=== PATIENT | female | born 1945 | race Caucasian/White ===

== ENCOUNTER 2016-03-12 09:28 | Outpatient (CLI) ==
[2016-01-12 13:30] VITALS: BMI 36.2
[2016-03-12 10:10] LABS: ALBUMIN 3.2 g/dL (3.4-5.0); ALBUMIN/GLOBULIN RATIO 0.97; ANION GAP 17.3; BILIRUBIN,TOTAL 0.27 mg/dL (0.00-1.20); BUN/CREATININE RATIO 8.33; CALCIUM 9.4 mg/dL (8.2-10.2); CREATININE 1.56 mg/dL (0.60-1.30); POTASSIUM 4.3 mmol/L (3.5-5.10); TOTAL PROTEIN 6.5 g/dL (5.8-8.1)
== END 2016-03-12 09:29 | disposition home or self-care (01) ==
LOC: LAB 09:28
PROVIDERS: ATTEND Emergency Medicine
DX: D64.9 Anemia, unspecified (principal); E11.9 Type 2 diabetes mellitus without complications; J44.9 Chronic obstructive pulmonary disease, unspecified; I10 Essential (primary) hypertension
CPT/HCPCS: 36415; 80053; 83036

== ENCOUNTER 2016-03-14 12:48 | Outpatient (CLI) ==
[2016-01-12 13:30] VITALS: BMI 36.2
[2016-03-14 13:50] LABS: BILIRUBIN,URINE Negative (NEGATIVE); KETONES,URINE Negative (NEGATIVE); LEUKOCYTE ESTERASE ,URINE 1+ (NEGATIVE); NITRITE,URINE Positive (NEGATIVE); PH,URINE 8.5 (5-9); PROTEIN,URINE Negative (NEGATIVE); URINE, BLOOD Negative (NEGATIVE)
[2016-03-14 13:52] LABS: ADD URINE MICROSCOPIC YES
[2016-03-14 13:56] LABS: BACTERIA,URINE 2+ (NOT PRESENT)
== END 2016-03-14 12:49 | disposition home or self-care (01) ==
LOC: LAB 12:48
PROVIDERS: ATTEND Emergency Medicine
DX: R35.0 Frequency of micturition (principal)
CPT/HCPCS: 81001; 87086; 87186

== ENCOUNTER 2016-03-18 00:13 | Outpatient (CLI) | payer OTHER ==
[2016-01-12 13:30] VITALS: BMI 36.2
== END 2016-03-18 00:14 | disposition home or self-care (01) ==
LOC: AMBL 00:13
PROVIDERS: ATTEND Emergency Medicine
DX: S39.92XA Unspecified injury of lower back, initial encounter (principal); S19.9XXA Unspecified injury of neck, initial encounter; W06.XXXA Fall from bed, initial encounter

== ENCOUNTER 2016-03-24 12:36 | Outpatient (CLI) ==
[2016-03-24 17:31] VITALS: BMI 38.7
== END 2016-03-24 12:37 | disposition home or self-care (01) ==
LOC: AMBL 12:36
PROVIDERS: ATTEND Internal Medicine Geriatric Medicine
DX: G20 Parkinson's disease (principal)

== ENCOUNTER 2016-03-24 13:08 | Inpatient (IN) | payer OTHER ==
--- NOTE | 2016-03-24 13:26 | ED.PDOC ---
General ED Provider: Dr. AZUL RODRIGUES Chief Complaint: Non-specific Complaint Time Seen by Physician: 13:15 Mode of Arrival: Ambulance Information Source: Patient, EMT Exam Limitations: No limitations [facility] T[facility] Documentation Reviewed and Agree: Yes Past Medical History - Past Medical History Previously Healthy: No Endocrine: Reports: DM 2 Cardiovascular: Reports: Hypertension Respiratory: Reports: COPD Hematological: Reports: Anemia Gastrointestinal: Reports: None Genitourinary: Reports: CKD Neuro/Psych: Reports: Depression, Bipolar Disorder Musculoskeletal: Reports: None Cancer: Reports: Other Last Menstrual Period: none Other Pertinent Past Medical History: Eye SurgeryHip Replacement RightHysterectomy---1995??? - Surgical History General Surgical History: Reports: Hysterectomy (Hysterectomy---1995???), Appendectomy, Cholecystectomy, Orthopedic (Hip Replacement Right), Other (Eye Surgery) - Family History Family History: Reports: Unknown - Social History Smoking Status: Former smoker Hx Substance Use: No Alcohol Screening: None Course - Course Vital Signs: Temp Pulse Resp BP Pulse Ox 03/24/16 13:09 97.4 F L 72 20 117/73 98 Departure - Departure Allergies/Adverse Reactions: Allergies pentazocine lactate [From Talwin] Allergy (Severe, Verified 03/24/16 13:18) RASH,MADE ME SICK, PROBLEMS BREATHING pT NOTIFIED TO GET MEDICAL ALERT [place] nitrofurantoin macrocrystal [From Macrodantin] Allergy (Intermediate, Verified 03/24/16 13:18) rash, swelling of lips and tongue ceftriaxone Adverse Reaction (Severe, Verified 03/24/16 13:18) Swelling bupropion HCl [From Wellbutrin] Adverse Reaction (Verified 03/24/16 13:18) ciprofloxacin [From Cipro] Adverse Reaction (Verified 03/24/16 13:18) citalopram hydrobromide [From Celexa] Adverse Reaction (Verified 03/24/16 13:18) gabapentin [From Neurontin] Adverse Reaction (Verified 03/24/16 13:18) ibuprofen Adverse Reaction (Verified 03/24/16 13:18) propoxyphene HCl [From Darvon] Adverse Reaction (Verified 03/24/16 13:18) propoxyphene napsylate [From Darvocet-N 100] Adverse Reaction (Verified 13:18) acetaminophen Adverse Reaction (Uncoded 12/16/12 16:20) adhesive tape Adverse Reaction (Uncoded 11/10/15 09:16) Home Medications: Ambulatory Orders Fluoxetine HCl 40 mg PO DAILY 02/10/15 Metformin HCl [Glucophage] 500 mg PO BIDWM 1 Days 02/11/15 Furosemide [Lasix Tab] 20 mg PO ONCE PRN #14 tablet 04/13/15 Potassium Chloride [K-Dur] 20 meq PO DAILY #30 tab 04/13/15 Clotrimazole/Betamethasone Dip [Lotrisone 45 gm] 1 applic TP BID #1 applic 06/12 Diazepam [Valium] 10 mg PO TID #90 08/11/15 Fluoxetine HCl [Prozac] 40 mg PO 2 in am #30 08/11/15 Quetiapine Fumarate [Seroquel] 200 mg PO at hs #30 08/11/15 Glycerin/Dimethicone [Neutrogena Sensi Skin Moisture] 1 applic TP DAILY #120 lotion 11/10/15 Hydrocodone/Acetaminophen [[place] 7.5-325 Tablet] 1 each PO BID 01/18/16
--- NOTE | 2016-03-24 13:29 | ED.PDOC ---
General ED Provider: Dr. AZUL RODRIGUES Chief Complaint: Non-specific Complaint Stated Complaint: Patient is a 70 year old female who comes to the ER with tremors that have gotten worse over the last two weeks. She states she was diaganosed with parkisons disease one year ago. She also complains of bruning on urination despite being on bactrium for the past few days. She has noted rash to legs since starting bactrium Time Seen by Physician: 13:26 Mode of Arrival: Ambulance Information Source: Patient, EMT Exam Limitations: No limitations [facility] Nursing and Triage Documentation Reviewed and Agree: Yes Miscellaneous Complaint Exam - Complex/Multi-System Complaint/Exam Onset/Duration: 2 weeks Symptoms Are: Still present Initial Severity: Moderate Current Severity: Severe Character: Bilateral diffuse tremor at rest and with intension. Aggravating: movement Alleviating: nothing Associated Signs and Symptoms: Reports: Decreased oral intake. Denies: Cough, Nausea, Vomiting Focal Weakness: Present: None Focal Sensory Loss: Present: None Gait: Ataxic Gag Reflex Present: Yes Babinski Sign: Negative Right, Negative Left Skin Findings: Present: Rash (on the shins bilaterally ) Review of Systems - Review Of Systems Constitutional: Reports: No symptoms Eyes: Reports: No symptoms Ears, Nose, Mouth, Throat: Reports: No symptoms Respiratory: Reports: No symptoms Cardiac: Reports: No symptoms GI: Reports: No symptoms : Reports: Dysuria Musculoskeletal: Reports: No symptoms Skin: Reports: No symptoms Neurological: Reports: Anxiety, Other (tremors ) Endocrine: Reports: No symptoms Hematologic/Lymphatic: Reports: No symptoms All Other Systems: Reviewed and Negative Past Medical History - Past Medical History Previously Healthy: No Endocrine: Reports: DM 2 Cardiovascular: Reports: Hypertension Respiratory: Reports: COPD Hematological: Reports: Anemia Gastrointestinal: Reports: None Genitourinary: Reports: CKD Neuro/Psych: Reports: Depression, Bipolar Disorder Musculoskeletal: Reports: None Cancer: Reports: Other Last Menstrual Period: none Other Pertinent Past Medical History: Eye SurgeryHip Replacement RightHysterectomy---1995??? - Surgical History General Surgical History: Reports: Hysterectomy (Hysterectomy---1995???), Appendectomy, Cholecystectomy, Orthopedic (Hip Replacement Right), Other (Eye Surgery) - Family History Family History: Reports: Unknown - Social History Smoking Status: Former smoker Hx Substance Use: No Alcohol Screening: None Physical Exam - Physical Exam Appearance: Ill-appearing, Obese Ill-appearing: Moderate Pain Distress: Moderate Eyes: YAO, EOMI, Conjunctiva clear ENT: Ears normal, Nose normal, Oropharynx normal Neck: Supple Respiratory: Airway patent, Breath sounds clear, Breath sounds equal, Respirations nonlabored Cardiovascular: RRR, Pulses normal, No rub, No murmur GI/: Soft, Nontender, No masses, Bowel sounds normal, No Organomegaly Musculoskeletal: Normal strength, ROM intact, No edema, No calf tenderness Skin: Warm, Dry Neurological: Sensation intact, Motor intact, Reflexes intact, Cranial nerves intact, Alert, Oriented Psychiatric: Anxious, Depressed Physician Notification - Case Discussed Physician Notified: Dr Armstrong Time of Notification: 14:50 (ok to admit not to give IV Pain medicaiton due to history of withdrawal.) Critical Care Note - Critical Care Note Total Time (mins): 15 Course - Course Hematology/Chemistry: 03/24/16 13:55 03/24/16 13:55 Orders, Labs, Meds: Lab Review 03/24/16 13:55 WBC 6.08 RBC 4.09 L Hgb 11.3 L Hct 35.7 L MCV 87.3 MCH 27.6 MCHC 31.7 L RDW Coeff of Sandrine 14.8 Plt Count 261 Immature Gran % (Auto) 0.2 Neut % (Auto) 44.3 Lymph % (Auto) 43.1 [place] % (Auto) 9.0 Eos % (Auto) 2.6 Baso % (Auto) 0.8 Immature Gran # (Auto) 0.0 Neut # 2.7 Lymph # 2.6 [place] # 0.6 Eos # 0.2 Baso # 0.1 Sodium 142 Potassium 4.4 Chloride 106 Carbon Dioxide 26 Anion Gap 14.4 BUN 26 H Creatinine 1.90 H Estimated GFR (MDRD) 26.00 BUN/Creatinine Ratio 13.68 Glucose 92 Calcium 9.4 Total Bilirubin 0.35 AST 22 ALT 18 Alkaline Phosphatase 64 Total Protein 6.9 Albumin 3.8 Globulin 3.1 Albumin/Globulin Ratio 1.23 Orders Category Date Time Status CBC W/ AUTO DIFF Stat LAB 03/24/16 13:55 Completed COMPREHENSIVE METABOLIC PANEL Stat LAB 03/24/16 13:55 Completed UA [URINALYSIS C & S IF INDICATED] Stat LAB 03/24/16 16:10 Completed Medications Generic Name Dose Route Start Last Admin Trade Name Freq PRN Reason Stop Dose Admin Acetaminophen/Hydrocodone Bitart tab 03/24/16 21:00 [place] 7.5-325 PO BID [facility] Albuterol Sulfate puff 03/24/16 17:00 Proair Hfa IH QID [facility] Amantadine HCl 100 mg 03/24/16 21:00 Symmetrel PO BID REJI Budesonide/Formoterol Fumarate puff 03/24/16 21:00 Symbicort 160-4.5 Mcg Inhaler IH BID [facility] Enoxaparin Sodium 30 mg 03/25/16 09:00 Lovenox SUBCUT DAILY [facility] Gabapentin 300 mg 03/24/16 21:00 Neurontin PO BID [facility] Sodium Chloride 1,000 mls @ 125 mls/hr 03/24/16 15:00 Sodium Chloride IV .Q8H REJI Aztreonam 0.5 gm/ Sodium 50 mls @ 75 mls/hr 03/24/16 17:00 Chloride IV Q12HR [facility] Nitroglycerin 0.4 mg 03/24/16 17:00 Nitrostat SL DIRECTED [facility] Non-Formulary Medication 40 mg 03/25/16 09:00 Fluoxetine Hcl [Fluoxetine Hcl] PO DAILY [facility] Non-Formulary Medication 1 applic 03/25/16 09:00 Glycerin/Dimethicone [Neutrogena Sensi Skin Moisture] TP DAILY [facility] Non-Formulary Medication 12.5 mg 03/25/16 09:00 Hydrochlorothiazide [Hydrochlorothiazide] PO DAILY [facility] Non-Formulary Medication 200 mg 03/24/16 16:45 Quetiapine Fumarate [Seroquel] PO at hs REJI Non-Formulary Medication 20 mg 03/25/16 09:00 Simvastatin [Simvastatin] PO DAILY [facility] Non-Formulary Medication 10 mg 03/24/16 21:00 Diazepam [Valium] PO TID REJI Non-Formulary Medication 20 mg 03/24/16 21:00 Esomeprazole Magnesium [Nexium] PO BID [facility] Ondansetron HCl 4 mg 03/24/16 14:54 Zofran 4 Mg/2 Ml IVP Q6H PRN Nausea / Vomiting Sitagliptin Phosphate 50 mg 03/25/16 09:00 Januvia PO DAILY [facility] Discontinued Medications Generic Name Dose Route Start Last Admin Trade Name Freq PRN Reason Stop Dose Admin Enoxaparin Sodium 40 mg 03/25/16 09:00 Lovenox SUBCUT DAILY [facility] Metformin HCl 1,000 mg 03/24/16 17:30 Glucophage PO BIDWM [facility] Vital Signs: Temp Pulse Resp BP Pulse Ox 03/24/16 13:09 97.4 F L 72 20 117/73 98 Departure - Departure Time of Disposition: 16:47 Disposition: ADMITTED INPATIENT Discharge Problem: Acute renal failure Qualifiers: Acute renal failure type: with acute renal cortical necrosis Qualifier Code: ( N17.1) Acute kidney failure with acute cortical necrosis UTI (urinary tract infection) Qualifiers: Urinary tract infection type: acute cystitis Hematuria presence: without hematuria Qualifier Code: (N30.00) Acute cystitis without hematuria Condition: Fair Pt referred to PMD for follow-up: Yes Allergies/Adverse Reactions: Allergies pentazocine lactate [From Talwin] Allergy (Severe, Verified 03/24/16 13:18) RASH,MADE ME SICK, PROBLEMS BREATHING pT NOTIFIED TO GET MEDICAL ALERT [place] nitrofurantoin macrocrystal [From Macrodantin] Allergy (Intermediate, Verified 03/24/16 13:18) rash, swelling of lips and tongue ceftriaxone Adverse Reaction (Severe, Verified 03/24/16 13:18) Swelling bupropion HCl [From Wellbutrin] Adverse Reaction (Verified 03/24/16 13:18) ciprofloxacin [From Cipro] Adverse Reaction (Verified 03/24/16 13:18) citalopram hydrobromide [From Celexa] Adverse Reaction (Verified 03/24/16 13:18) gabapentin [From Neurontin] Adverse Reaction (Verified 03/24/16 13:18) ibuprofen Adverse Reaction (Verified 03/24/16 13:18) propoxyphene HCl [From Darvon] Adverse Reaction (Verified 03/24/16 13:18) propoxyphene napsylate [From Darvocet-N 100] Adverse Reaction (Verified 13:18) acetaminophen Adverse Reaction (Uncoded 12/16/12 16:20) adhesive tape Adverse Reaction (Uncoded 11/10/15 09:16) Home Medications: Ambulatory Orders Fluoxetine HCl 40 mg PO DAILY 02/10/15 Furosemide [Lasix Tab] 20 mg PO ONCE PRN #14 tablet 04/13/15 Diazepam [Valium] 10 mg PO TID #90 08/11/15 Quetiapine Fumarate [Seroquel] 200 mg PO at hs #30 08/11/15 Glycerin/Dimethicone [Neutrogena Sensi Skin Moisture] 1 applic TP DAILY #120 lotion 11/10/15 Hydrocodone/Acetaminophen [[place] 7.5-325 Tablet] 1 each PO BID 01/18/16 Amantadine HCl [Amantadine] 100 mg PO BID 03/24/16 Metformin HCl [Glucophage] 1,000 mg PO BIDWM 03/24/16 Disposition Discussed With: Patient
[2016-03-24 13:57] LABS: BASOPHILS # (AUTO) 0.1 K/uL (0-0.2); BASOPHILS % (AUTO) 0.8 % (0.0-3.0); EOSINOPHILS # (AUTO) 0.2 K/ul (0.0-0.7); EOSINOPHILS % (AUTO) 2.6 % (0.0-7.0); HEMATOCRIT 35.7 % (37.0-47.0); HEMOGLOBIN 11.3 g/dl (12.0-16.0); IMMATURE GRANULOCYTE % (AUTO) 0.2 % (0.0-5.0); LYMPHOCYTES # (AUTO) 2.6 K/uL (0.60-3.4); LYMPHOCYTES % (AUTO) 43.1 (10.0-50.0); MEAN CORPUSCULAR HEMOGLOBIN 27.6 pg (27.0-31.0); MEAN CORPUSCULAR HGB CONC 31.7 (31.8-35.4); MEAN CORPUSCULAR VOLUME 87.3 fl (81.0-99.0); MONOCYTES # (AUTO) 0.6 K/uL (0.4-2.0); NEUTROPHILS # (AUTO) 2.7 K/ul (2.0-6.9); NEUTROPHILS % (AUTO) 44.3; PLATELET COUNT 261 10^3/uL (140-440); RED BLOOD COUNT 4.09 10^6/ul (4.20-5.40); WHITE BLOOD COUNT 6.08 K/ul (4.6-10.2)
[2016-03-24 14:18] LABS: ALBUMIN 3.8 g/dL (3.4-5.0); ALBUMIN/GLOBULIN RATIO 1.23; ANION GAP 14.4; BILIRUBIN,TOTAL 0.35 mg/dL (0.00-1.20); BUN/CREATININE RATIO 13.68; CALCIUM 9.4 mg/dL (8.2-10.2); CREATININE 1.9 mg/dL (0.60-1.30); POTASSIUM 4.4 mmol/L (3.5-5.10); TOTAL PROTEIN 6.9 g/dL (5.8-8.1)
[2016-03-24] MEDS ORDERED: ZOFRAN 4 MG/2 ML IVP PRN (14:54)
[2016-03-24] MEDS ORDERED: SODIUM CHLORIDE 1,000 ML IV SCH (15:00)
[2016-03-24 16:17] LABS: BILIRUBIN,URINE Negative (NEGATIVE); KETONES,URINE Negative (NEGATIVE); LEUKOCYTE ESTERASE ,URINE 1+ (NEGATIVE); NITRITE,URINE Positive (NEGATIVE); PH,URINE 8.5 (5-9); PROTEIN,URINE Trace (NEGATIVE); URINE, BLOOD Negative (NEGATIVE)
[2016-03-24 16:19] LABS: ADD URINE MICROSCOPIC YES
[2016-03-24 16:21] LABS: BACTERIA,URINE 3+ (NOT PRESENT)
[2016-03-24] MEDS ORDERED: LIDOCAINE 1 % AMP 5 ML (SUTURES) ONE (16:22)
--- NOTE | 2016-03-24 16:33 | ED.PDOC ---
Procedures - IV/Art Line Insertion Location: rt wrist Type of Line: Peripheral IV Invasive Line/IV Catheter Gauge: 24 Number of Attempts: 1 Blood Return Positive: Yes Invasive Line/IV Flushes Without Difficulty: Yes Conscious Sedation - Pre-op Assessment Weight: 180 lb Surgical History: Appendectomy. Gallbladder. Eye Surgery. Hip Replacement Right. Hysterectomy---1995??? - Medical History Past Medical History: Cancer, COPD, Depression Other History: parkinsons - Physical Exam Heart Rate/Rhythm: Regular Rhythm, Regular Rate
[2016-03-24] MEDS ORDERED: QUETIAPINE FUMARATE 200 MG PO SCH ×2 (16:45→22:03)
[2016-03-24] MEDS ORDERED: PROAIR HFA IH SCH (17:00)
[2016-03-24] MEDS ORDERED: NITROSTAT SL PRN (17:00)
[2016-03-24] MEDS ORDERED: GLUCOPHAGE PO SCH (17:30)
[2016-03-24 17:31] VITALS: BMI 38.7
[2016-03-24] MEDS ORDERED: AZACTAM ONE ×2 (18:14→18:16)
[2016-03-24] MEDS ORDERED: SODIUM CHLORIDE 50 ML IV ONE (18:29)
[2016-03-24] MEDS: AZACTAM 0.5 GM in SODIUM CHLORIDE 50 ML IV SCH ×2 (18:30→20:28)
[2016-03-24] MEDS: SODIUM CHLORIDE 1,000 ML IV SCH (18:30)
[2016-03-24] MEDS ORDERED: LASIX TAB PO PRN (19:10)
[2016-03-24] MEDS ORDERED: PROAIR HFA IH PRN (19:10)
[2016-03-24] MEDS ORDERED: VALIUM ONE (20:25)
[2016-03-24] MEDS: NEURONTIN PO SCH (20:28)
[2016-03-24] MEDS: NORCO 7.5-325 PO SCH (20:28)
[2016-03-24] MEDS ORDERED: SYMMETREL PO SCH (21:00)
[2016-03-24] MEDS ORDERED: NON-FORMULARY MEDICATION (Diazepam [Valium] 10 MG) PO SCH ×22 (21:00)
[2016-03-24] MEDS ORDERED: NORCO 7.5-325 PO SCH (21:00)
[2016-03-24] MEDS ORDERED: NON-FORMULARY MEDICATION (Esomeprazole Magnesium [Nexium] 20 MG) PO SCH ×22 (21:00)
[2016-03-24] MEDS ORDERED: SEROQUEL ONE (22:14)
[2016-03-24] MEDS ORDERED: SEROQUEL PO STA (22:16)
[2016-03-25 04:54] LABS: BASOPHILS # (AUTO) 0.1 K/uL (0-0.2); BASOPHILS % (AUTO) 0.9 % (0.0-3.0); EOSINOPHILS # (AUTO) 0.2 K/ul (0.0-0.7); EOSINOPHILS % (AUTO) 3.5 % (0.0-7.0); HEMATOCRIT 34.7 % (37.0-47.0); HEMOGLOBIN 10.7 g/dl (12.0-16.0); IMMATURE GRANULOCYTE % (AUTO) 0.4 % (0.0-5.0); LYMPHOCYTES # (AUTO) 2.7 K/uL (0.60-3.4); LYMPHOCYTES % (AUTO) 48.7 (10.0-50.0); MEAN CORPUSCULAR HEMOGLOBIN 27.4 pg (27.0-31.0); MEAN CORPUSCULAR HGB CONC 30.8 (31.8-35.4); MONOCYTES # (AUTO) 0.5 K/uL (0.4-2.0); MONOCYTES % (AUTO) 8.6 (0-10); NEUTROPHILS # (AUTO) 2.1 K/ul (2.0-6.9); NEUTROPHILS % (AUTO) 37.9; PLATELET COUNT 235 10^3/uL (140-440); WHITE BLOOD COUNT 5.46 K/ul (4.6-10.2)
[2016-03-25] MEDS ORDERED: TYLENOL PO STA (05:11)
[2016-03-25 05:15] LABS: BUN/CREATININE RATIO 13.29; CALCIUM 8.9 mg/dL (8.2-10.2); CREATININE 1.73 mg/dL (0.60-1.30)
[2016-03-25] MEDS ORDERED: NON-FORMULARY MEDICATION (Hydrochlorothiazide [Hydrochlorothiazide] 12.5 MG) PO SCH ×22 (09:00)
[2016-03-25] MEDS ORDERED: FLUOXETINE HCL 40 MG PO SCH (09:00)
[2016-03-25] MEDS ORDERED: NON-FORMULARY MEDICATION (Simvastatin [Simvastatin] 20 MG) PO SCH ×22 (09:00)
[2016-03-25] MEDS ORDERED: DIMETHICONE TP SCH (09:00)
[2016-03-25] MEDS ORDERED: GLYCERIN TP SCH (09:00)
[2016-03-25] MEDS ORDERED: [UNRECOGNIZED DRUG - OTHER] TP SCH (09:00)
[2016-03-25] MEDS ORDERED: AZACTAM 1 GM in SODIUM CHLORIDE 50 ML IV SCH (09:00)
[2016-03-25] MEDS ORDERED: LOVENOX SUBCUT SCH (09:00)
[2016-03-25] MEDS: PROZAC PO SCH (09:07)
[2016-03-25] MEDS: LOVENOX SUBCUT SCH (09:07)
[2016-03-25] MEDS: NEURONTIN PO SCH ×2 (09:08→20:00)
[2016-03-25] MEDS: MICRO-K CAP PO SCH (09:08)
[2016-03-25] MEDS: ZOCOR PO SCH (09:08)
[2016-03-25] MEDS: VALIUM PO SCH ×3 (09:09→20:00)
[2016-03-25] MEDS: HYDROCHLOROTHIAZIDE PO SCH (09:09)
[2016-03-25] MEDS: NORCO 7.5-325 PO SCH ×2 (09:10→20:00)
[2016-03-25] MEDS: GOLD BOND ULTIMATE HEALING TP SCH (09:10)
[2016-03-25] MEDS: JANUVIA PO SCH (09:10)
[2016-03-25] MEDS: PROTONIX PO SCH ×2 (09:11→16:46)
[2016-03-25] MEDS: SYMMETREL PO SCH ×2 (09:13→20:01)
[2016-03-25] MEDS: SYMBICORT 160-4.5 MCG INHALER IH SCH ×2 (09:20→20:01)
[2016-03-25] MEDS: SODIUM CHLORIDE 1,000 ML IV SCH ×2 (14:09→14:10)
[2016-03-25] MEDS: SEROQUEL PO SCH (20:00)
[2016-03-25] MEDS ORDERED: AZACTAM 1 GM in SODIUM CHLORIDE 100 ML IV SCH (21:00)
[2016-03-26 04:27] LABS: BASOPHILS % (AUTO) 0.8 % (0.0-3.0); EOSINOPHILS # (AUTO) 0.3 K/ul (0.0-0.7); EOSINOPHILS % (AUTO) 4.9 % (0.0-7.0); HEMATOCRIT 34.4 % (37.0-47.0); HEMOGLOBIN 10.6 g/dl (12.0-16.0); IMMATURE GRANULOCYTE % (AUTO) 0.4 % (0.0-5.0); LYMPHOCYTES # (AUTO) 2.5 K/uL (0.60-3.4); LYMPHOCYTES % (AUTO) 46.9 (10.0-50.0); MEAN CORPUSCULAR HEMOGLOBIN 27.6 pg (27.0-31.0); MEAN CORPUSCULAR HGB CONC 30.8 (31.8-35.4); MEAN CORPUSCULAR VOLUME 89.6 fl (81.0-99.0); MONOCYTES # (AUTO) 0.5 K/uL (0.4-2.0); MONOCYTES % (AUTO) 9.2 (0-10); NEUTROPHILS % (AUTO) 37.8; PLATELET COUNT 239 10^3/uL (140-440); RED BLOOD COUNT 3.84 10^6/ul (4.20-5.40); WHITE BLOOD COUNT 5.31 K/ul (4.6-10.2)
[2016-03-26] MEDS ORDERED: TYLENOL PO STA (04:45)
[2016-03-26 04:51] LABS: ANION GAP 13.1; BUN/CREATININE RATIO 12.5; CREATININE 1.84 mg/dL (0.60-1.30); POTASSIUM 4.1 mmol/L (3.5-5.10)
[2016-03-26] MEDS: PROTONIX PO SCH ×2 (05:32→16:43)
[2016-03-26] MEDS: SYMBICORT 160-4.5 MCG INHALER IH SCH ×3 (06:07→20:12)
[2016-03-26] MEDS ORDERED: TESSALON PERLES PO PRN (08:55)
[2016-03-26] MEDS ORDERED: PRIMAXIN 500 MG in SODIUM CHLORIDE 100 ML IV SCH ×2 (09:30→13:00)
--- NOTE | 2016-03-26 09:57 | HP ---
DATE OF SERVICE: 03/24/16 CHIEF COMPLAINT: Weakness and tiredness. HISTORY OF PRESENT ILLNESS: This is a 70 year old female with multiple medical problems who came to the emergency room complaining that she has been feeling more weak and tired and having more shakiness in the hands and not able to stand. This dates back to two weeks when she was having a urinary tract infection and was started on Bactrim. The symptoms starting getting worse and also she started having the rash in the lower extremity. As the patient was having weakness and the tremors were getting worse, she came to the emergency room today on 03/24/16. Dr. Muse saw the patient. BUN was 26, creatinine 1.90. Urine was still showing leukocyte esterase positive. Recent urine culture from March 14 showed e.coli positive and sensitive to most antibiotics. Her kidney function was worse as it used to be 13 and 1.56, but it went up to 26 and 1.90. At that time, Dr. Muse admitted the patient for the IV antibiotics and medication allergy and for the UTI and worsening kidney function. REVIEW OF SYSTEMS: Weakness, tiredness, tremors in the hands and frequency of urination with rash on the lower extremity each heel. CONSTITUTIONAL: No fever, no chills. HEENT: Normal. ENDOCRINE: No weight gain; no weight loss. CVS: No chest pain. No PND, no orthopnea. No shortness of breath. RESPIRATORY: No cough, no congestion. No hemoptysis. GI: No nausea, no vomiting. No abdominal pain. No melena. : No hematuria. No polyuria. MUSCULOSKELETAL: No joint swelling. PSYCHIATRIC: Not anxious. No depression. No suicidal thoughts. No homicidal thoughts. SKIN: Rash on lower extremities. PAST MEDICAL HISTORY: Hypertension Stable angina Dyslipidemia TIA Parkinson disease Seizure disorder Chronic obstructive pulmonary disease Diverticulosis Hiatal hernia Osteoarthritis DJD of the spine Hepatitis B in remission since 2005 Frequent UTI's Rheumatoid arthritis Diabetes mellitus Depression Anxiety PAST SURGICAL HISTORY: Appendectomy Cholecystectomy Three back surgeries Hysterectomy Colon resection PERSONAL HISTORY: Does smoke, no alcohol and drugs. Partially independent upon ADL's. FAMILY HISTORY: Significant for cancer. MEDICATIONS: Albuterol, Fluoxetine, Lasix, Symbicort, Seroquel, Valium, Hydrochlorothiazide, Simvastatin, Esomeprazole, Hydrocodone, Potassium, Metformin, Amantadine, Januvia. ALLERGIES: Pentazocine, Nitrofurantoin, Rocephin. PHYSICAL EXAMINATION: V/S: Blood pressure 117/73, respiratory rate 20, heart rate 72, temperature 97.4. HEENT: Atraumatic, normocephalic. Mucosa dry. No scleral icterus. Pallor positive. NECK: Supple. No JVD, no bruit. No lymphadenopathy. No thyromegaly. HEART: S1, S2 normal. No murmur. No cyanosis or clubbing. No ascites. LUNGS: Clear to auscultation. No rales or rhonchi. ABDOMEN: Soft, nontender. Bowel sounds are active. No CVA tenderness. No rigidity or guarding. EXTREMITIES: No cyanosis, clubbing or pedal edema. MUSCULOSKELETAL: Shakiness in the hands. Normal joints, no swelling. NEUROLOGIC: The patient is awake, alert, oriented times three. SKIN: Rash in the lower extremities, mostly looks like folliculitis. LYMPHATIC: No lymph nodes palpable. LABS: White count is 6.08, hemoglobin 11.3, hematocrit 35.7, platelet count is 261, sodium 142, potassium 4.4, chloride 106, bicarb 26, BUN 26, Creatinine 1.90. ASSESSMENT: 1. MEDICATION REACTION 2. DEHYDRATION WITH WORSENING KIDNEY FUNCTION 3. URINARY TRACT INFECTION 4. HISTORY OF PARKINSONISM 5. HYPERTENSION 6. STABLE ANGINA 7. DIABETES 8. OSTEOARTHRITIS 9. DJD OF THE SPINE 10. DEPRESSION 11. ANXIETY PLAN: 1. Admit the patient to the regular floor. 2. CBC. CMP today and daily. 3. Accuchecks with coverage. 4. IV fluids. 5. Azactam. 6. Lovenox for DVT prophylaxis. 7. Continue home medications. 8. Will follow up with the patient in daily rounds. Time spent on the patient in more than 65 minutes today. MTDD
[2016-03-26] MEDS: PRIMAXIN 250 MG in SODIUM CHLORIDE 100 ML IV SCH ×3 (10:33→22:40)
[2016-03-26] MEDS: HYDROCHLOROTHIAZIDE PO SCH (11:04)
--- NOTE | 2016-03-26 11:04 | PN ---
DATE OF SERVICE: 03/25/16 SUBJECTIVE: The patient was admitted with the worsening renal function and allergic to the Bactrim medication. The patient is sitting in the chair and says that she feels a lot better today. The patient's daughter in the room had a lot of questions, all been answered. REVIEW OF SYSTEMS: CONSTITUTIONAL: No fever, no chills. HEENT: Normal. ENDOCRINE: No weight gain, no weight loss. CVS: No angina symptoms. No CHF symptoms. No palpitations. No atypical chest pain for CAD. No shortness of breath. No PND, no orthopnea. RESPIRATORY: No cough, no hemoptysis. GI: No nausea, no vomiting. No abdominal pain. : No hematuria. No polyuria. MUSCULOSKELETAL:. No joint swelling. PSYCHIATRIC: Not anxious. No depression. No suicidal thoughts. No homicidal thoughts. SKIN: Intact. No rash. PHYSICAL EXAMINATION: V/S: Blood pressure 132/71, respiratory rate 16, heart rate 64, temperature 97.6. HEENT: Normocephalic, atraumatic. Ears, eyes, nose and throat normal. Mucosa dry. Pallor positive. No icterus. NECK: Supple. No JVD, no carotid bruit. No lymphadenopathy. LUNGS: Bilateral entry is decreased and clear to auscultation. No rales or rhonchi. HEART: S1, S2 normal. No S3. No murmur, gallop or regurgitation. ABDOMEN: Soft, nontender. Bowel sounds active. No rigidity. No rebound or guarding. No CVA tenderness. EXTREMITIES: No clubbing, cyanosis or pedal edema. MUSCULOSKELETAL: No joint swelling. NEUROLOGIC: Awake, alert, oriented times three. No focal deficit. LYMPHATIC: No lymph nodes palpable. SKIN: Intact. LABS: Sodium 144, potassium 4.0, chloride 110, bicarb 23, BUN 23, creatinine 1.73, WBC 5.46, hgb 10.7, hct 34.7 and plt count 235. ASSESSMENT: 1. Acute on chronic renal failure 2. Medication reaction from the Bactrim 3. UTI, e-coli 4. Hypertension 5. Dyslipidemia 6. Angina, stable 7. Diabetes PLAN: 1. Continue Azactam 2. Accu-checks with the coverage 3. Lovenox for the DVT prophylaxis Will follow the patient in daily rounds. TIME SPENT: More than 30 minutes MTDD
[2016-03-26] MEDS: JANUVIA PO SCH (11:05)
[2016-03-26] MEDS: LOVENOX SUBCUT SCH (11:05)
[2016-03-26] MEDS: NEURONTIN PO SCH ×2 (11:06→20:12)
[2016-03-26] MEDS: NORCO 7.5-325 PO SCH ×2 (11:06→20:10)
[2016-03-26] MEDS: MICRO-K CAP PO SCH (11:06)
[2016-03-26] MEDS: PROZAC PO SCH (11:07)
[2016-03-26] MEDS: NYSTOP POWDER TP SCH ×2 (11:07→20:12)
[2016-03-26] MEDS: SYMMETREL PO SCH ×2 (11:08→20:10)
[2016-03-26] MEDS: VALIUM PO SCH ×3 (11:09→20:10)
[2016-03-26] MEDS: ZOCOR PO SCH (11:09)
[2016-03-26] MEDS: GOLD BOND ULTIMATE HEALING TP SCH (12:01)
--- NOTE | 2016-03-26 13:28 | US ---
EXAM: Renal ultrasound HISTORY: Elevated BUN and creatinine COMPARISON: Renal ultrasound 12/25/2013 TECHNIQUE: Sonographic evaluation of the kidneys was performed with limited Doppler evaluation. FINDINGS: The right kidney measures 9.5 x 4.7 x 4.3 cm with renal cortical thickness of 1.3 cm. Th ere is normal echogenicity and color Doppler flow. No stone or hydronephrosis is identified. The left kidney measures 10.5 x 5.1 x 4.2 cm with renal cortical thickness of 1.5 cm. There is norm al echogenicity and color Doppler flow. No stone or hydronephrosis is identified. Limited evaluation of the urinary bladder is unremarkable. IMPRESSION: No sonographic abnormality of the kidneys
--- NOTE | 2016-03-26 14:59 | PCM.PROG ---
Attending Provider: ATTENDING PROVIDER: Dr. ISHA BOLES DATE OF SERVICE: 03/26/16 SUBJECTIVE: This 70 year old WHITE/ F was hospitalized 03/24/16. The patient is admitted with acute renal failure and UTI. The patient states she is feeling better. She has loose stools after she eats which is normal for her. She has been coughing. Urine grew E.coli; sensitivity not tested for Azactam; will change to Primaxin. REVIEW OF SYSTEMS: CONSTITUTIONAL: No fever, no chills. ENDOCRINE: No weight loss or weight gain. HEENT: No sinus drainage, no sore throat. CVS: No angina symptoms. No CHF symptoms. No palpitations. No atypical chest pain for CAD. No shortness of breath. RESPIRATORY: Cough and congestion. GI: No melena. No abdominal pain. No nausea, no vomiting. Loose stools. : No hematuria. No polyuria. SKIN: No rash. No wounds. MUSCULOSKELETAL: No pain. SUPERVISOR DOCK: No blackout, no dizziness. No headache. No double vision. PSYCHIATRIC: Not anxious; no depression. No suicidal thoughts. No homicidal thoughts. PHYSICAL EXAMINATION: GENERAL: Sitting in bed in no distress. VITAL SIGNS: Temperature 97.1 F, Pulse 72, Respiratory Rate 16, BP 97/53, Pulse Ox 93% HEENT: Normocephalic, atraumatic. Mucosa is dry, pallor positive. NECK: No JVP, no carotid bruit. No lymphadenopathy. CARDIAC: S1, S2, no S3. No murmur, gallop or regurgitation. LUNGS: Clear to auscultation. ABDOMEN: Soft, non-tender. Bowel sounds active. No rigidity, guarding or CVA tenderness. EXTREMITIES: No clubbing, cyanosis or edema. NEUROLOGIC: Awake, alert and oriented x3. LYMPHATIC: No palpable lymph nodes SKIN: Not dry. Intact. MUSCULOSKELETAL: No joint swelling. LAB REVIEW: 03/26/16 04:26 03/26/16 04:26 03/26/16 04:26: WBC 5.31, RBC 3.84 L, Hgb 10.6 L, Hct 34.4 L, MCV 89.6, MCH 27.6 , MCHC 30.8 L, RDW Coeff of Sandrine 15.1 H, Plt Count 239, Immature Gran % (Auto) 0.4, Neut % (Auto) 37.8, Lymph % (Auto) 46.9, [place] % (Auto) 9.2, Eos % (Auto) 4.9, Baso % (Auto) 0.8, Immature Gran # (Auto) 0.0, Neut # 2.0, Lymph # 2.5, [place] # 0.5, Eos # 0.3, Baso # 0.0, Sodium 142, Potassium 4.1, Chloride 108 H, Carbon Dioxide 25, Anion Gap 13.1, BUN 23 H, Creatinine 1.84 H, Estimated GFR ( MDRD) 27.00, BUN/Creatinine Ratio 12.50, Glucose 118 H, Calcium 9.0 ASSESSMENT: 1. UTI, E. coli organism positive 2. Renal failure, getting better 3. Hypertension 4. Diabetes mellitus 5. Dyslipidemia 6. Depression/anxiety 7. Parkinsonism like symptoms 8. Short bowel syndrome PLAN: 1. Stop Azactam 2. Start Primaxin 500 q.8hr 3. Tessalon Perles q.8hr 4. Renal Ultrasound Plan and coordination of the patient's care discussed in the presence of Outside Plant Engineer and nurse. CONDITION: Stable SCRIBED BY: JANEY MINAYA, Manager Fleet scribed while in presence of service performed by Dr. ISHA BOLES on 03/26/16 ([id number])
[2016-03-26] MEDS: SEROQUEL PO SCH (21:50)
[2016-03-26] MEDS ORDERED: LIDOCAINE 2% 20 ML MDV ONE (22:21)
[2016-03-26] MEDS: SODIUM CHLORIDE 1,000 ML IV SCH (22:40)
--- NOTE | 2016-03-26 22:44 | ED.PDOC ---
Procedures - IV/Art Line Insertion Location: rt wrist Type of Line: Peripheral IV Invasive Line/IV Catheter Gauge: 24 Number of Attempts: 1 Blood Return Positive: Yes Invasive Line/IV Flushes Without Difficulty: Yes (lidocaine 1% without epinepherine .05ml intradermal Wasted 19.95ml) Conscious Sedation - Pre-op Assessment Weight: 198 lb Surgical History: Appendectomy. Gallbladder. Eye Surgery. Hip Replacement Right. Hysterectomy---1995??? - Medical History Past Medical History: Cancer, COPD, Depression Other History: parkinsons - Physical Exam Heart Rate/Rhythm: Regular Rhythm, Regular Rate
[2016-03-27] MEDS: PRIMAXIN 250 MG in SODIUM CHLORIDE 100 ML IV SCH ×3 (04:41→20:34)
[2016-03-27 04:43] LABS: BASOPHILS % (AUTO) 0.6 % (0.0-3.0); EOSINOPHILS # (AUTO) 0.2 K/ul (0.0-0.7); EOSINOPHILS % (AUTO) 2.9 % (0.0-7.0); HEMATOCRIT 33.5 % (37.0-47.0); HEMOGLOBIN 10.2 g/dl (12.0-16.0); IMMATURE GRANULOCYTE % (AUTO) 0.1 % (0.0-5.0); LYMPHOCYTES # (AUTO) 2.6 K/uL (0.60-3.4); MEAN CORPUSCULAR HEMOGLOBIN 27.6 pg (27.0-31.0); MEAN CORPUSCULAR HGB CONC 30.4 (31.8-35.4); MEAN CORPUSCULAR VOLUME 90.5 fl (81.0-99.0); MONOCYTES # (AUTO) 0.6 K/uL (0.4-2.0); MONOCYTES % (AUTO) 8.7 (0-10); NEUTROPHILS # (AUTO) 3.4 K/ul (2.0-6.9); NEUTROPHILS % (AUTO) 49.7; PLATELET COUNT 214 10^3/uL (140-440); WHITE BLOOD COUNT 6.82 K/ul (4.6-10.2)
[2016-03-27 05:01] LABS: BUN/CREATININE RATIO 12.29; CREATININE 1.79 mg/dL (0.60-1.30)
[2016-03-27] MEDS: PROTONIX PO SCH ×2 (06:06→17:05)
[2016-03-27] MEDS: SYMBICORT 160-4.5 MCG INHALER IH SCH ×2 (09:03→20:33)
[2016-03-27] MEDS: NYSTOP POWDER TP SCH ×2 (09:03→20:34)
[2016-03-27] MEDS: LOVENOX SUBCUT SCH (09:03)
[2016-03-27] MEDS: SYMMETREL PO SCH ×2 (09:03→20:32)
[2016-03-27] MEDS: PROZAC PO SCH (09:04)
[2016-03-27] MEDS: JANUVIA PO SCH (09:04)
[2016-03-27] MEDS: MICRO-K CAP PO SCH (09:04)
[2016-03-27] MEDS: ZOCOR PO SCH (09:04)
[2016-03-27] MEDS: VALIUM PO SCH ×3 (09:05→20:33)
[2016-03-27] MEDS: GOLD BOND ULTIMATE HEALING TP SCH (09:05)
[2016-03-27] MEDS: NORCO 7.5-325 PO SCH ×2 (09:05→20:33)
[2016-03-27] MEDS: NEURONTIN PO SCH ×2 (09:05→20:33)
[2016-03-27] MEDS: HYDROCHLOROTHIAZIDE PO SCH (09:05)
[2016-03-27] MEDS: SODIUM CHLORIDE 1,000 ML IV SCH (09:19)
--- NOTE | 2016-03-27 09:48 | PCM.PROG ---
Attending Provider: ATTENDING PROVIDER: Dr. ISHA ARMSTRONG DATE OF SERVICE: 03/27/16 SUBJECTIVE: This 70 year old WHITE/ F was hospitalized 03/24/16. The patient states she is feeling better today. Urine grew E. coli sensitive to Primaxin. The patient finally got IV access last night at 10 p.m. No fever no chills. Renal function is improving. Renal ultrasound was normal. Blood sugars are normal. She states that at home she uses a cane/walker. REVIEW OF SYSTEMS: CONSTITUTIONAL: No fever, no chills. ENDOCRINE: No weight loss or weight gain. HEENT: No sinus drainage, no sore throat. CVS: No angina symptoms. No CHF symptoms. No palpitations. No atypical chest pain for CAD. No shortness of breath at rest. RESPIRATORY: No cough, no hemoptysis. GI: No melena. No abdominal pain. No nausea, no vomiting. : No hematuria. No polyuria. SKIN: No rash. No wounds. MUSCULOSKELETAL: No pain. AGRICULTURE LABORER: No blackout, no dizziness. No headache. No double vision. PSYCHIATRIC: Not anxious; no depression. No suicidal thoughts. No homicidal thoughts. PHYSICAL EXAMINATION: GENERAL: Lying in bed in no distress. VITAL SIGNS: Temperature 97.6 F, Pulse 70, Respiratory Rate 18, BP 112/76, Pulse Ox 95% HEENT: Normocephalic, atraumatic. Mucosa is dry, pallor positive. NECK: No JVP, no carotid bruit. No lymphadenopathy. CARDIAC: S1, S2, no S3. No murmur, gallop or regurgitation. LUNGS: Clear to auscultation. ABDOMEN: Soft, non-tender. Bowel sounds active. No rigidity, guarding or CVA tenderness. EXTREMITIES: No clubbing, cyanosis or edema. NEUROLOGIC: Awake, alert and oriented x3. Gait is unsteady. LYMPHATIC: No palpable lymph nodes SKIN: Not dry. Intact. MUSCULOSKELETAL: No joint swelling. LAB REVIEW: 03/27/16 04:39 03/27/16 04:39 03/27/16 04:39: WBC 6.82, RBC 3.70 L, Hgb 10.2 L, Hct 33.5 L, MCV 90.5, MCH 27.6 , MCHC 30.4 L, RDW Coeff of Sandrine 15.2 H, Plt Count 214, Immature Gran % (Auto) 0.1, Neut % (Auto) 49.7, Lymph % (Auto) 38.0, [place] % (Auto) 8.7, Eos % (Auto) 2.9, Baso % (Auto) 0.6, Immature Gran # (Auto) 0.0, Neut # 3.4, Lymph # 2.6, [place] # 0.6, Eos # 0.2, Baso # 0.0, Sodium 141, Potassium 4.0, Chloride 109 H, Carbon Dioxide 25, Anion Gap 11.0, BUN 22 H, Creatinine 1.79 H, Estimated GFR ( MDRD) 28.00, BUN/Creatinine Ratio 12.29, Glucose 115, Calcium 9.0 ASSESSMENT: 1. UTI, E. coli organism positive 2. Renal failure, improving 3. Hypertension 4. Diabetes mellitus 5. Dyslipidemia 6. Depression/anxiety 7. Parkinsonism like symptoms 8. Short bowel syndrome PLAN: 1. Continue Primaxin 500 mg q.8hr 2. Out of bed to chair 3. Home health care Plan and coordination of the patient's care discussed in the presence of Safety And Security Manager and nurse. EDUCATION: Dr. Armstrong had discussion with the patient concerning [facility] for Accu -Cheks twice a week, PT/OT, nursing assessment and medication compliance. The patient is agreeable. CONDITION: Stable SCRIBED BY: JANEY MINAYA Psychological Operations Specialist scribed while in presence of service performed by Dr. ISHA ARMSTRONG on 03/27/16 ([id number])
[2016-03-27] MEDS ORDERED: TYLENOL PO STA (11:12)
[2016-03-27] MEDS: SEROQUEL PO SCH (20:33)
[2016-03-28] MEDS ORDERED: TYLENOL PO STA (01:45)
[2016-03-28] MEDS: PRIMAXIN 250 MG in SODIUM CHLORIDE 100 ML IV SCH ×3 (04:11→20:16)
[2016-03-28] MEDS: PROTONIX PO SCH ×2 (05:30→17:06)
[2016-03-28 05:31] LABS: BASOPHILS # (AUTO) 0.1 K/uL (0-0.2); BASOPHILS % (AUTO) 0.7 % (0.0-3.0); EOSINOPHILS # (AUTO) 0.2 K/ul (0.0-0.7); EOSINOPHILS % (AUTO) 2.2 % (0.0-7.0); HEMATOCRIT 32.8 % (37.0-47.0); HEMOGLOBIN 10.2 g/dl (12.0-16.0); IMMATURE GRANULOCYTE % (AUTO) 0.4 % (0.0-5.0); LYMPHOCYTES # (AUTO) 2.3 K/uL (0.60-3.4); LYMPHOCYTES % (AUTO) 30.5 (10.0-50.0); MEAN CORPUSCULAR HEMOGLOBIN 27.9 pg (27.0-31.0); MEAN CORPUSCULAR HGB CONC 31.1 (31.8-35.4); MEAN CORPUSCULAR VOLUME 89.6 fl (81.0-99.0); MONOCYTES # (AUTO) 0.6 K/uL (0.4-2.0); NEUTROPHILS # (AUTO) 4.3 K/ul (2.0-6.9); NEUTROPHILS % (AUTO) 58.2; PLATELET COUNT 207 10^3/uL (140-440); RED BLOOD COUNT 3.66 10^6/ul (4.20-5.40)
[2016-03-28 05:45] LABS: ANION GAP 12.2; BUN/CREATININE RATIO 11.24; CALCIUM 8.9 mg/dL (8.2-10.2); CREATININE 1.69 mg/dL (0.60-1.30); POTASSIUM 4.2 mmol/L (3.5-5.10)
[2016-03-28] MEDS: SODIUM CHLORIDE 1,000 ML IV SCH (05:55)
[2016-03-28] MEDS: SYMMETREL PO SCH ×2 (08:40→20:17)
[2016-03-28] MEDS: NYSTOP POWDER TP SCH ×2 (08:40→20:17)
[2016-03-28] MEDS: GOLD BOND ULTIMATE HEALING TP SCH (08:40)
[2016-03-28] MEDS: NEURONTIN PO SCH ×2 (08:41→20:19)
[2016-03-28] MEDS: NORCO 7.5-325 PO SCH ×2 (08:41→20:17)
[2016-03-28] MEDS: VALIUM PO SCH ×3 (08:41→20:18)
[2016-03-28] MEDS: JANUVIA PO SCH (08:41)
[2016-03-28] MEDS: ZOCOR PO SCH (08:41)
[2016-03-28] MEDS: LOVENOX SUBCUT SCH (08:42)
[2016-03-28] MEDS: HYDROCHLOROTHIAZIDE PO SCH (08:42)
[2016-03-28] MEDS: PROZAC PO SCH (08:42)
[2016-03-28] MEDS: MICRO-K CAP PO SCH (08:43)
[2016-03-28] MEDS: SYMBICORT 160-4.5 MCG INHALER IH SCH ×2 (08:44→20:16)
[2016-03-28] MEDS ORDERED: TORADOL IVP STA (14:52)
--- NOTE | 2016-03-28 17:03 | CT ---
EXAM: CT left knee without contrast HISTORY: Left knee pain TECHNIQUE: Multi-slice transaxial helical with coronal and sagittal reformed images COMPARISON: Left knee radiographs from 01/12/2016 FINDINGS: The medial femoral tibial joint space is moderately to severely narrowed. Moderate sized marginal osteophytes arise about the knee. The patellofemoral joint space is mildly narrowed. A sm all suprapatellar effusion is detected. A 2.1 mm loose osteochondral body is detected near the medi al femoral condyle in the suprapatellar joint space.. No acute fracture or subluxation are apprecia marcello. The visible ligaments have normal caliber. No Mejia's cyst is appreciated. [ The bones are free of suspicious osteolytic or osteoblastic lesions. IMPRESSION: 1. No acute fracture or subluxation. 2. Tricompartmental osteoarthritis, most pronounced and moderate to severe at the medial femoral ti bial joint space. 3. 2.1 mm loose osteochondral body in the suprapatellar joint space.
[2016-03-28] MEDS: SEROQUEL PO SCH (20:18)
[2016-03-29] MEDS: SODIUM CHLORIDE 1,000 ML IV SCH (02:21)
[2016-03-29] MEDS: PRIMAXIN 250 MG in SODIUM CHLORIDE 100 ML IV SCH ×2 (04:52→12:28)
[2016-03-29] MEDS: PROTONIX PO SCH (05:53)
[2016-03-29] MEDS: NYSTOP POWDER TP SCH (08:41)
[2016-03-29] MEDS: GOLD BOND ULTIMATE HEALING TP SCH (08:41)
[2016-03-29] MEDS: SYMBICORT 160-4.5 MCG INHALER IH SCH (08:41)
[2016-03-29] MEDS: LOVENOX SUBCUT SCH (08:42)
[2016-03-29] MEDS: NORCO 7.5-325 PO SCH (08:42)
[2016-03-29] MEDS: VALIUM PO SCH (08:42)
[2016-03-29] MEDS: MICRO-K CAP PO SCH (08:43)
[2016-03-29] MEDS: ZOCOR PO SCH (08:43)
[2016-03-29] MEDS: JANUVIA PO SCH (08:43)
[2016-03-29] MEDS: PROZAC PO SCH (08:44)
[2016-03-29] MEDS: NEURONTIN PO SCH (08:44)
[2016-03-29] MEDS: HYDROCHLOROTHIAZIDE PO SCH (08:44)
[2016-03-29] MEDS: SYMMETREL PO SCH (08:45)
--- NOTE | 2016-03-29 09:52 | PCM.PROG ---
Attending Provider: ATTENDING PROVIDER: Dr. ISHA ARMSTRONG DATE OF SERVICE: 03/29/16 SUBJECTIVE: This 70 year old WHITE/ F was hospitalized 03/24/16. The patient had a fall yesterday. She states she is feeling fine this morning. White count is normal. Urine output is better. She complains of left knee pain. CT scan of the left knee showed osteoarthritis. The pain is less today with no swelling. The patient follows at [facility]. REVIEW OF SYSTEMS: CONSTITUTIONAL: No fever, no chills. ENDOCRINE: No weight loss or weight gain. HEENT: No sinus drainage, no sore throat. CVS: No angina symptoms. No CHF symptoms. No palpitations. No atypical chest pain for CAD. No shortness of breath. RESPIRATORY: No cough, no hemoptysis. GI: No melena. No abdominal pain. No nausea, no vomiting. : No hematuria. No polyuria. SKIN: No rash. No wounds. MUSCULOSKELETAL: Left knee pain/tenderness. SAND BOBBER: No blackout, no dizziness. No headache. No double vision. PSYCHIATRIC: Not anxious; no depression. No suicidal thoughts. No homicidal thoughts. PHYSICAL EXAMINATION: GENERAL: Lying in bed in no distress. VITAL SIGNS: Temperature 97.9 F, Pulse 74, Respiratory Rate 18, BP 109/70, Pulse Ox 96% HEENT: Normocephalic, atraumatic. Mucosa is dry, pallor positive. NECK: No JVP, no carotid bruit. No lymphadenopathy. CARDIAC: S1, S2, no S3. No murmur, gallop or regurgitation. LUNGS: Clear to auscultation. ABDOMEN: Soft, non-tender. Bowel sounds active. No rigidity, guarding or CVA tenderness. EXTREMITIES: No clubbing, cyanosis or edema. Left knee pain with decreased range of motion. No swelling. Tenderness on palpation. NEUROLOGIC: Awake, alert and oriented x3. LYMPHATIC: No palpable lymph nodes SKIN: Not dry. Intact. MUSCULOSKELETAL: No joint swelling. LAB REVIEW: 03/28/16 05:29 03/28/16 05:29 ASSESSMENT: 1. UTI, E. coli organism positive 2. Renal failure, improving 3. Hypertension 4. Diabetes mellitus 5. Dyslipidemia 6. Depression/anxiety 7. Parkinsonism like symptoms 8. Short bowel syndrome PLAN: 1. Plan for discharge home today. 2. Will have the patient follow up at the [facility] within one week. 3. The patient has an appointment with Dr. Jacobsen in April. 4. Suggested the patient go to the walk-in orthopedic clinic off [address] in [place] for left knee osteoarthritis. 5. Stop Metformin. 6. Continue Januvia. 7. Fall risk discussed. Plan and coordination of the patient's care discussed in the presence of Newspaper Peddler and nurse. CONDITION: Stable EDUCATION: Dr. Armstrong had discussion with the patient concerning [facility] for Accu -Cheks twice a week, PT/OT, nursing assessment, medication compliance and nutrition. The patient is agreeable. SCRIBED BY: JANEY MINAYA, Electronics Test Engineer scribed while in presence of service performed by Dr. ISHA ARMSTRONG on 03/29/16 ([id number])
[2016-03-29 10:28] VITALS: BP 116/54; TEMP 99.1
--- NOTE | 2016-04-19 15:36 | PN ---
DATE OF SERVICE: 03/28/16 SUBJECTIVE: The patient was admitted with the acute renal failure, dehydration and urinary tract infection showed the e-coli. Pain and burning sensation in the urine a lot better. The patient is up and about sitting in the chair not having any problem. Still some wobbliness is present. REVIEW OF SYSTEMS: CONSTITUTIONAL: No fever, no chills. HEENT: Normal. ENDOCRINE: No weight gain, no weight loss. CVS: No angina symptoms. No CHF symptoms. No palpitations. No atypical chest pain for CAD. No shortness of breath. No PND, no orthopnea. RESPIRATORY: No cough, no hemoptysis. GI: No nausea, no vomiting. No abdominal pain. : No hematuria. No polyuria. MUSCULOSKELETAL:. No joint swelling. PSYCHIATRIC: Not anxious. No depression. No suicidal thoughts. No homicidal thoughts. SKIN: Intact. No rash. PHYSICAL EXAMINATION: V/S: Blood pressure 116/63, respiratory rate 16, heart rate 72 and temperature 98%. HEENT: Normocephalic, atraumatic. Ears, eyes, nose and throat normal. Mucosa dry. Pallor positive. No icterus. NECK: Supple. No JVD, no carotid bruit. No lymphadenopathy. LUNGS: Decreased and clear to auscultation. No rales or rhonchi. HEART: S1, S2 normal. No S3. No murmur, gallop or regurgitation. ABDOMEN: Soft, nontender. Bowel sounds active. No rigidity. No rebound or guarding. No CVA tenderness. EXTREMITIES: No clubbing, cyanosis or pedal edema. MUSCULOSKELETAL: No joint swelling. NEUROLOGIC: Awake, alert, oriented times three. No focal deficit. LYMPHATIC: No lymph nodes palpable. SKIN: Intact. LABS: WBC 7.40, hgb 12.2, hct 33.8, plt count 207, sodium 141, potassium 4.2, chloride 111, Bicarb 22, BUN 19, creatinine 1.69 and glucose 129. ASSESSMENT: 1. UTI 2. Acute renal failure 3. Dehydration 4. E-coli UTI 5. Hypertension 6. Parkinson's 7. Diabetes mellitus 8. COPD 9. TIA 10. Anxiety disorder 11. Dyslipidemia 12. Hepatitic B 13. Continue tobacco use 14. Chronic pain syndrome, goes to Pain Management. PLAN: 1. Continue the Primaxin 2. Zofran 3. IV fluids 4. Lovenox for the DVT prophylaxis 5. Out of bed to chair activity as tolerated. TIME SPENT: More than 30 minutes MTDD
--- NOTE | 2016-04-20 14:13 | DS ---
DATE OF SERVICE: 03/29/16 FINAL DIAGNOSIS: 1. URINARY TRACT INFECTION, ORGANISM E.COLI SENSITIVE TO MOST OF THE ANTIBIOTICS 2. DEHYDRATION, WHICH IS BETTER 3. ACUTE ON CHRONIC RENAL FAILURE, WHICH HAS IMPROVED 4. HYPERTENSION 5. DIABETES MELLITUS 6. DYSLIPIDEMIA 7. DEPRESSION 8. ANXIETY 9. PARKINSONISM LIKE SYNDROME 10. SHORT BOWEL SYNDROME 11. TIA 12. CHRONIC OBSTRUCTIVE PULMONARY DISEASE 13. HISTORY OF HEPATITIS B 14. CONTINUED TOBACCO USE 15. CHRONIC PAIN SYNDROME 16. COLON RESECTION IN 2012 17. RIGHT HIP REPLACEMENT IN 2012 18. APPENDECTOMY 19. CHOLECYSTECTOMY 20. LUMBAR SPINE SURGERY TIMES THREE PLAN: 1. Discharge the patient home. 2. Follow up in the [facility] within one week to 10 days. 3. Diet: Diabetic diet, low carb diet, high protein diet. 4. Keep the follow up with the Pain Management on 04/30/16. 5. No prescriptions were given, as the patient got enough antibiotics and no oral agents were sensitive. 6. Stop taking the Metformin, as we have started the patient on the Januvia, which was at least twice a day. 7. [facility] for PT/OT evaluation and nursing assessment, medication, Accu-checks and nutrition. 8. The rest of the home medications are: ProAir, Amantadine, Blood glucose monitoring, Symbicort, Valium, Nexium, Fluoxetine, Lasix, Hydrochlorothiazide, Hydrocodone, Nitroglycerin, Potassium, Seroquel, Simvastatin and Januvia. DISEASE SPECIFIC EDUCATION: About dehydration, urinary tract infection, antibiotic use and the diarrhea with the use of probiotics and yogurt were discussed. HOSPITAL COURSE: Rubi Rodríguez, who is a 70 year old female who lives by herself and with home health care, was feeling weakness, tiredness, burning and frequency of urination and found with hemglobin 11.3, BUN 26, creatinine 1.90, urine was positive for the leukocyte esterase and nitrites, afebrile. With the given history of multiple medical problems, weakness and tiredness, the patient is admitted to the hospital for the IV antibiotics and IV hydration. The patient was started on Primaxin IV and Azactam was given with IV fluids. Lovenox for the DVT prophylaxis. With the given treatment, gradually she started feeling better. Urine was growing e.coli. The patient is a very hard stick. We had to take extra help to get the stick for IV lines. The patient's BUN and creatinine was gradually getting better from 26 dropped 19 and the creatinine was 1.90 to 1.69. Hemoglobin and hematocrit was steady. She did not have any complications during the stay. As the patient was doing good, up and about and was more steady than usual. At that time, the patient is discharged to home. Explained about the use of probiotics. Explained about the new diabetic medication, Januvia and the risk of hypoglycemia. She verbalized understanding. The patient will be followed at the [facility]. Time spent on the patient is more than 45 minutes today. LETICIA
== END 2016-03-29 13:10 | disposition home or self-care (01) | DRG 689 ==
LOC: ED 13:08 → SCU 14:40
PROVIDERS: ADMIT Emergency Medicine; ATTEND Emergency Medicine
DX: N30.00 Acute cystitis without hematuria (principal); N17.1 Acute kidney failure with acute cortical necrosis; K91.2 Postsurgical malabsorption, not elsewhere classified; E86.0 Dehydration; N18.9 Chronic kidney disease, unspecified; G20 Parkinson's disease; E11.9 Type 2 diabetes mellitus without complications; J44.9 Chronic obstructive pulmonary disease, unspecified; G89.4 Chronic pain syndrome; R21 Rash and other nonspecific skin eruption; I10 Essential (primary) hypertension; T37.0X5A Adverse effect of sulfonamides, initial encounter; B96.20 Unspecified Escherichia coli [E. coli] as the cause of diseases classified elsewhere; E78.5 Hyperlipidemia, unspecified; F41.8 Other specified anxiety disorders; S89.92XA Unspecified injury of left lower leg, initial encounter; M25.562 Pain in left knee; W19.XXXA Unspecified fall, initial encounter; Y92.231 Patient bathroom in hospital as the place of occurrence of the external cause; Z90.49 Acquired absence of other specified parts of digestive tract; Z86.73 Personal history of transient ischemic attack (TIA), and cerebral infarction without residual deficits; Z79.84 Long term (current) use of oral hypoglycemic drugs; Z79.899 Other long term (current) drug therapy; Z87.440 Personal history of urinary (tract) infections; Z72.0 Tobacco use
CPT/HCPCS: 36415; 76770; 80048; 80053; 81001; 82962; 85025; 87086; 87186; 99223; 99232; 99233; 99239; 99284

== ENCOUNTER 2016-04-13 14:59 | Outpatient (CLI) ==
[2016-04-11 09:03] VITALS: BMI 38.7
== END 2016-04-13 15:00 | disposition home or self-care (01) ==
LOC: LAB 14:59 → NONPT 15:00
PROVIDERS: ATTEND Emergency Medicine
DX: E11.9 Type 2 diabetes mellitus without complications (principal); N39.0 Urinary tract infection, site not specified; B96.20 Unspecified Escherichia coli [E. coli] as the cause of diseases classified elsewhere

== ENCOUNTER 2016-04-17 14:38 | Outpatient (CLI) ==
[2016-04-11 09:03] VITALS: BMI 38.7
[2016-04-17 14:58] LABS: BILIRUBIN,URINE Negative (NEGATIVE); KETONES,URINE Negative (NEGATIVE); LEUKOCYTE ESTERASE ,URINE 2+ (NEGATIVE); NITRITE,URINE Positive (NEGATIVE); PROTEIN,URINE Negative (NEGATIVE); URINE, BLOOD Trace-intact (NEGATIVE)
[2016-04-17 14:59] LABS: ADD URINE MICROSCOPIC YES; BACTERIA,URINE 3+ (NOT PRESENT)
== END 2016-04-17 14:39 | disposition home or self-care (01) ==
LOC: NONPT 14:38
PROVIDERS: ATTEND Emergency Medicine
DX: N39.0 Urinary tract infection, site not specified (principal); B96.20 Unspecified Escherichia coli [E. coli] as the cause of diseases classified elsewhere
CPT/HCPCS: 81001

== ENCOUNTER 2016-04-25 18:36 | Observation (INO) ==
[2016-04-25 19:15] LABS: BASOPHILS # (AUTO) 0.1 K/uL (0-0.2); BASOPHILS % (AUTO) 0.6 % (0.0-3.0); EOSINOPHILS # (AUTO) 0.3 K/ul (0.0-0.7); EOSINOPHILS % (AUTO) 3.1 % (0.0-7.0); HEMATOCRIT 34.2 % (37.0-47.0); HEMOGLOBIN 10.9 g/dl (12.0-16.0); IMMATURE GRANULOCYTE % (AUTO) 0.4 % (0.0-5.0); LYMPHOCYTES % (AUTO) 24.7 (10.0-50.0); MEAN CORPUSCULAR HEMOGLOBIN 28.3 pg (27.0-31.0); MEAN CORPUSCULAR HGB CONC 31.9 (31.8-35.4); MEAN CORPUSCULAR VOLUME 88.8 fl (81.0-99.0); MONOCYTES # (AUTO) 0.6 K/uL (0.4-2.0); MONOCYTES % (AUTO) 6.8 (0-10); NEUTROPHILS # (AUTO) 5.2 K/ul (2.0-6.9); NEUTROPHILS % (AUTO) 64.4; PLATELET COUNT 285 10^3/uL (140-440); RED BLOOD COUNT 3.85 10^6/ul (4.20-5.40); WHITE BLOOD COUNT 8.05 K/ul (4.6-10.2)
[2016-04-25 19:15] LABS: ABG BASE EXCESS -3 (-2.0-2.0); ABG PCO2 28.7 mmHg (35-45); ABG PH 7.475 (7.35-7.45)
[2016-04-25 19:16] LABS: ABG HCO3 21.1 (22.0-26.0); ABG TCO2 22 (22.0-28.0)
--- NOTE | 2016-04-25 19:41 | CT ---
EXAM: CT head without contrast 05/23/2016. Sagittal and coronal reformatted images obtained HISTORY: Ataxia COMPARISON: 04/13/2015 FINDINGS: There is no evidence of intracranial hemorrhage. The midline is maintained. There is no hydrocephalus. Generalized atrophy. Chronic small vessel ischemic changes. No cerebellar tonsilla r ectopia. Evaluation of the calvarium shows no fracture. The mastoid air cells are normally pneum atized. IMPRESSION: No acute intracranial abnormality.
--- NOTE | 2016-04-25 19:44 | CT ---
EXAM: CT chest without contrast HISTORY: Weakness with recent hospitalization for bladder infection. COMPARISON: CT chest 01/12/2016 and 02/10/2015 TECHNIQUE: Serial axial images of the chest were obtained from the lung apices to the upper abdomen without contrast. These were viewed in multiple planes. FINDINGS: The thyroid is normal. The visualized vessels are unremarkable without aneurysm or steno sis. The heart is normal in size without pericardial effusion. There are no pathologically enlarge d mediastinal or hilar lymph nodes. There are calcified AP window lymph nodes. There is no pneumothorax or pleural effusion. There is scattered mild emphysematous disease. There is minimal nodular ground-glass noted in the posterior right upper lobe unchanged from prior exam. There is minimal nodular ground-glass noted in the right lower lobe on image 50. Calcified left up per lobe granuloma is unchanged. The airways are patent. The soft tissues in the upper abdomen demonstrate prior cholecystectomy. There is mild atherosclero tic disease. The liver is unchanged in size with stable hepatic steatosis. There is degenerative dis ease of the spine. IMPRESSION: 1. No acute cardiopulmonary process with minimal scattered areas of ground-glass in the medial righ t lower lobe and in the right lung base which are likely postinflammatory. 2. Stable mild emphysematous disease. 3. Sequela of old granulomatous disease. 4. Unchanged hepatic steatosis
[2016-04-25 19:46] LABS: ALBUMIN 3.7 g/dL (3.4-5.0); ALBUMIN/GLOBULIN RATIO 1.09; ANION GAP 14.5; BILIRUBIN,TOTAL 0.21 mg/dL (0.00-1.20); BUN/CREATININE RATIO 9.44; CALCIUM 9.6 mg/dL (8.2-10.2); CREATININE 1.8 mg/dL (0.60-1.30); POTASSIUM 4.5 mmol/L (3.5-5.10); TOTAL PROTEIN 7.1 g/dL (5.8-8.1); TROPONIN I 0.012 ng/ml (0.0000-0.4000)
[2016-04-25 20:04] LABS: CREATINE KINASE MB 4.1 ng/ml (0.0-3.6)
[2016-04-25 20:13] LABS: BILIRUBIN,URINE Negative (NEGATIVE); KETONES,URINE Negative (NEGATIVE); LEUKOCYTE ESTERASE ,URINE Trace (NEGATIVE); NITRITE,URINE Negative (NEGATIVE); PROTEIN,URINE Negative (NEGATIVE); URINE, BLOOD Negative (NEGATIVE)
[2016-04-25 20:16] LABS: ADD URINE MICROSCOPIC YES
--- NOTE | 2016-04-25 20:31 | ED.PDOC ---
General ED Provider: Dr. ALLY ROSE-ER Chief Complaint: Weakness Stated Complaint: my legs have been weak for several days Time Seen by Physician: 19:00 Mode of Arrival: Wheelchair Information Source: Patient Exam Limitations: No limitations [facility] Nursing and Triage Documentation Reviewed and Agree: Yes Neurological Complaint Exam - Weakness Complaint/Exam Last Known Well: 3 days Onset: Sudden Symptoms Are: Still present Timing: Intermittent Episodes Lasting: Days Initial Severity: Mild Current Severity: Mild Character: Reports: Weak Aggravating: Reports: None Alleviating: Reports: None Associated Signs and Symptoms: Denies: Nausea, Vomiting, Diaphoresis, Tinnitus, Chest pain, Short of air, Palpitations, Unsteady gait, GI blood loss, Visual changes, Decreased oral intake, Change in medication, Change in diet, OTC meds, Loss of balance Cardiac Risk Factors: Reports: Hypertension Related Surgical History: Reports: None JVD Present: No Carotid Bruit Present: No Rectal Heme Positive: No Glascow Coma Scale (see protocol): 15 Nystagmus Present: No Gag Reflex Present: Yes Meningeal Signs Positive: No Focal Weakness: Present: None Focal Sensory Loss: Present: None Gait: Unsteady, Ataxic Cynceh-nb-Cdyi: Normal Findings Romberg Test Positive: No Babinski Sign: Negative Right, Negative Left Heel to Toe Normal: Yes Conrad-Hallpike Test Positive: No Differential Diagnoses: Other Quality Indicator For Non-Traumatic Chest Pain/Syncope: EKG Performed Review of Systems - Review Of Systems Constitutional: Reports: No symptoms Eyes: Reports: No symptoms Ears, Nose, Mouth, Throat: Reports: No symptoms Respiratory: Reports: No symptoms Cardiac: Reports: No symptoms GI: Reports: No symptoms : Reports: No symptoms Musculoskeletal: Reports: No symptoms Skin: Reports: No symptoms Neurological: Reports: Weakness Endocrine: Reports: No symptoms Hematologic/Lymphatic: Reports: No symptoms All Other Systems: Reviewed and Negative Past Medical History - Past Medical History Previously Healthy: No Endocrine: Reports: DM 2 Cardiovascular: Reports: Hypertension Respiratory: Reports: COPD Hematological: Reports: Anemia Gastrointestinal: Reports: None Genitourinary: Reports: CKD Neuro/Psych: Reports: Depression, Bipolar Disorder Musculoskeletal: Reports: None Cancer: Reports: Other Last Menstrual Period: hysterectomy Other Pertinent Past Medical History: Eye SurgeryHip Replacement RightHysterectomy---1995??? - Surgical History General Surgical History: Reports: Hysterectomy (Hysterectomy---1995???), Appendectomy, Cholecystectomy, Orthopedic (Hip Replacement Right), Other (Eye Surgery) - Family History Family History: Reports: Unknown - Social History Smoking Status: Former smoker Hx Substance Use: No Alcohol Screening: None Lives: With family Physical Exam - Physical Exam Appearance: Well-appearing, No pain distress, Well-nourished Eyes: YAO, EOMI, Conjunctiva clear ENT: Ears normal, Nose normal, Oropharynx normal Neck: Supple Respiratory: Airway patent Cardiovascular: RRR, Pulses normal, No rub, No murmur GI/: Soft, Nontender, No masses, Bowel sounds normal, No Organomegaly Musculoskeletal: Normal strength, ROM intact, No edema, No calf tenderness Skin: Warm Neurological: Alert, Oriented Psychiatric: Affect appropriate Interpretation - Radiology Interpretation Radiology Interpretation By: Radiologist Radiology Results: Negative Exam Interpreted: CT Scan - EKG Interpretation Time of EKG #1: 20:31 Rate: Normal Rhythm: Sinus Ectopy: None [place]: NL ST Segment: Normal Physician Notification - Case Discussed Physician Notified: dr graham Time of Notification: 20:31 Critical Care Note - Critical Care Note Total Time (mins): 0 Course - Course Hematology/Chemistry: 04/25/16 19:05 04/25/16 19:05 Orders, Labs, Meds: Lab Review 04/25/16 04/25/16 04/25/16 18:50 19:05 20:00 WBC 8.05 RBC 3.85 L Hgb 10.9 L Hct 34.2 L MCV 88.8 MCH 28.3 MCHC 31.9 RDW Coeff of Sandrine 15.3 H Plt Count 285 Immature Gran % (Auto) 0.4 Neut % (Auto) 64.4 Lymph % (Auto) 24.7 [place] % (Auto) 6.8 Eos % (Auto) 3.1 Baso % (Auto) 0.6 Immature Gran # (Auto) 0.0 Neut # 5.2 Lymph # 2.0 [place] # 0.6 Eos # 0.3 Baso # 0.1 D-Dimer 0.88 Puncture Site Lb O2 Saturation 98.0 ABG pH 7.475 H ABG pCO2 28.7 L ABG pO2 101.0 H ABG HCO3 21.1 L ABG Total CO2 22 ABG Base Excess -3 L Kevin Test + FiO2 % 21.0 Sodium 138 Potassium 4.5 Chloride 105 Carbon Dioxide 23 Anion Gap 14.5 BUN 17 Creatinine 1.80 H Estimated GFR (MDRD) 28.00 BUN/Creatinine Ratio 9.44 Glucose 93 Calcium 9.6 Total Bilirubin 0.21 AST 22 ALT 21 Alkaline Phosphatase 74 Total Creatine Kinase 202 CK-MB (CK-2) 4.1 H CK-MB (CK-2) % 2.37604 Troponin I 0.0120 Total Protein 7.1 Albumin 3.7 Globulin 3.4 Albumin/Globulin Ratio 1.09 Urine Color Yellow Urine Clarity Clear Urine pH 7.0 Ur Specific [place] 1.015 Urine Protein Negative Urine Glucose (UA) Negative Urine Ketones Negative Urine Blood Negative Urine Nitrite Negative Urine Bilirubin Negative Urine Urobilinogen 0.2 Ur Leukocyte Esterase Trace Ur Squamous Epith Cells Pending Orders Category Date Time Status ABG DRAW REQUEST Stat CARDIO 04/25/16 18:50 Completed EKG-(ED ONLY) Stat CARDIO 04/25/16 18:50 Completed ABG Stat LAB 04/25/16 18:50 Completed CBC W/ AUTO DIFF Stat LAB 04/25/16 19:05 Completed COMPREHENSIVE METABOLIC PANEL Stat LAB 04/25/16 19:05 Completed CREATINE KINASE Stat LAB 04/25/16 19:05 Completed D-DIMER Stat LAB 04/25/16 19:05 Completed TROPONIN I Stat LAB 04/25/16 19:05 Completed URINALYSIS C & S IF INDICATED Stat LAB 04/25/16 20:[address] CHEST W/O CONTRAST Stat RADS 04/25/16 18:[address] HEAD W/O CONTRAST Stat RADS 04/25/16 18:51 Completed Vital Signs: Temp Pulse Resp BP Pulse Ox 04/25/16 18:37 99.5 F 69 20 138/66 95 Departure - Departure Time of Disposition: 20:31 Disposition: PLACED OBSERVATION Discharge Problem: Muscle weakness Instructions: Weakness (ED) Condition: Stable Pt referred to PMD for follow-up: Yes Allergies/Adverse Reactions: Allergies pentazocine lactate [From Talwin] Allergy (Severe, Verified 04/25/16 18:46) RASH,MADE ME SICK, PROBLEMS BREATHING pT NOTIFIED TO GET MEDICAL ALERT [place] nitrofurantoin macrocrystal [From Macrodantin] Allergy (Intermediate, Verified 04/25/16 18:46) rash, swelling of lips and tongue ceftriaxone Adverse Reaction (Severe, Verified 04/25/16 18:46) Swelling bupropion HCl [From Wellbutrin] Adverse Reaction (Verified 04/25/16 18:46) ciprofloxacin [From Cipro] Adverse Reaction (Verified 04/25/16 18:46) citalopram hydrobromide [From Celexa] Adverse Reaction (Verified 04/25/16 18:46) gabapentin [From Neurontin] Adverse Reaction (Verified 04/25/16 18:46) ibuprofen Adverse Reaction (Verified 04/25/16 18:46) propoxyphene HCl [From Darvon] Adverse Reaction (Verified 04/25/16 18:46) propoxyphene napsylate [From Darvocet-N 100] Adverse Reaction (Verified 18:46) acetaminophen Adverse Reaction (Uncoded 12/16/12 16:20) adhesive tape Adverse Reaction (Uncoded 11/10/15 09:16) Home Medications: Ambulatory Orders Fluoxetine HCl 40 mg PO DAILY 02/10/15 Furosemide [Lasix Tab] 20 mg PO ONCE PRN #14 tablet 04/13/15 Diazepam [Valium] 10 mg PO TID #90 08/11/15 Quetiapine Fumarate [Seroquel] 200 mg PO BEDTIME #30 08/11/15 Glycerin/Dimethicone [Neutrogena Sensi Skin Moisture] 1 applic TP DAILY #120 lotion 11/10/15 Hydrocodone/Acetaminophen [[place] 7.5-325 Tablet] 1 each PO BID 01/18/16 Amantadine HCl [Amantadine] 100 mg PO BID 03/24/16 Disposition Discussed With: Patient
[2016-04-25] MEDS ORDERED: NON-FORMULARY MEDICATION (Furosemide [Lasix Tab] 20 MG) PO PRN ×22 (20:35)
[2016-04-25] MEDS ORDERED: ALBUTEROL SULFATE IH PRN (20:35)
[2016-04-25] MEDS ORDERED: NON-FORMULARY MEDICATION (Nitroglycerin [Nitroglycerin] 0.4 MG) PO PRN (20:45)
[2016-04-25] MEDS ORDERED: NON-FORMULARY MEDICATION (Amantadine Hcl [Amantadine] 100 MG) PO SCH ×22 (21:00)
[2016-04-25] MEDS ORDERED: ACETAMINOPHEN PO SCH (21:00)
[2016-04-25] MEDS ORDERED: FORMOTEROL FUMARATE IH SCH ×22 (21:00)
[2016-04-25] MEDS ORDERED: QUETIAPINE FUMARATE 200 MG PO SCH (21:00)
[2016-04-25] MEDS ORDERED: SULFAMETHOXAZOLE PO SCH (21:00)
[2016-04-25] MEDS ORDERED: NON-FORMULARY MEDICATION (Esomeprazole Magnesium [Nexium] 20 MG) PO SCH ×22 (21:00)
[2016-04-25] MEDS ORDERED: TRIMETHOPRIM PO SCH (21:00)
[2016-04-25] MEDS ORDERED: [UNRECOGNIZED DRUG - OTHER] IH SCH ×22 (21:00)
[2016-04-25] MEDS ORDERED: NON-FORMULARY MEDICATION (Diazepam [Valium] 10 MG) PO SCH ×22 (21:00)
[2016-04-25] MEDS ORDERED: HYDROCODONE PO SCH (21:00)
[2016-04-25] MEDS ORDERED: BUDESONIDE IH SCH ×22 (21:00)
[2016-04-26 00:15] VITALS: BMI 38.7
[2016-04-26] MEDS ORDERED: NON-FORMULARY MEDICATION (Simvastatin [Simvastatin] 20 MG) PO SCH ×22 (09:00)
[2016-04-26] MEDS ORDERED: FORMOTEROL FUMARATE IH SCH ×22 (09:00)
[2016-04-26] MEDS ORDERED: NON-FORMULARY MEDICATION (Sitagliptin Phosphate [Januvia] 50 MG) PO SCH ×22 (09:00)
[2016-04-26] MEDS ORDERED: ACETAMINOPHEN PO SCH (09:00)
[2016-04-26] MEDS ORDERED: [UNRECOGNIZED DRUG - OTHER] IH SCH ×22 (09:00)
[2016-04-26] MEDS ORDERED: LOVENOX SUBCUT SCH (09:00)
[2016-04-26] MEDS ORDERED: FLUOXETINE HCL 40 MG PO SCH (09:00)
[2016-04-26] MEDS ORDERED: NON-FORMULARY MEDICATION (Hydrochlorothiazide [Hydrochlorothiazide] 12.5 MG) PO SCH ×22 (09:00)
[2016-04-26] MEDS ORDERED: HYDROCODONE PO SCH (09:00)
[2016-04-26] MEDS ORDERED: POTASSIUM CHLORIDE 10 MEQ PO SCH (09:00)
[2016-04-26] MEDS ORDERED: TRIMETHOPRIM PO SCH (09:00)
[2016-04-26] MEDS ORDERED: BUDESONIDE IH SCH ×22 (09:00)
[2016-04-26] MEDS ORDERED: SULFAMETHOXAZOLE PO SCH (09:00)
[2016-04-26] MEDS ORDERED: NON-FORMULARY MEDICATION (Amantadine Hcl [Amantadine] 100 MG) PO SCH ×22 (09:00)
[2016-04-26] MEDS: NON-FORMULARY MEDICATION (Diazepam [Valium] 10 MG) PO SCH ×44 (10:58→15:51)
[2016-04-26] MEDS ORDERED: NON-FORMULARY MEDICATION (Esomeprazole Magnesium [Nexium] 20 MG) PO SCH ×22 (17:00)
[2016-04-26 17:45] VITALS: BP 128/64; TEMP 98.3
[2016-04-26] MEDS ORDERED: QUETIAPINE FUMARATE 200 MG PO SCH (21:00)
--- NOTE | 2016-04-26 21:53 | MRI ---
EXAM: Brain MRI without contrast. HISTORY: Weakness. COMPARISON: Head CT 04/25/2016 and brain MRI 10/18/2011. TECHNIQUE: Multiplanar, multisequence MR images were acquired of the brain without contrast. FINDINGS: There is enlargement of the subarachnoid space over both frontal lobes at the convexity a nd this produces mild flattening of the gyri without edema (sagittal images #9 and 14). There is inc reased cerebrospinal fluid in the anterior interhemispheric fissure and mild prominence of the sulci . The ventricles are normal in size. These findings are compatible with mild diffuse cerebral volum e loss. The brain parenchyma has no diffusion restriction to suggest acute hypoperfusion or infarction. The re is a faint area of curvilinear minor bright B 1000, dark ADC signal that courses from the anterio r right lateral ventricle to the cortex across the basal ganglia. There is no associated abnormal hyperintense T2 or FLAIR signal and this is considered artifactual. There are faint patchy FLAIR hy perintensities in the bilateral parietal occipital periventricular white matter and small scattered T2 hyperintensities are present in the supratentorial white matter including the anterior and medial right temporal lobe. This is compatible with mild leukomalacia. There is a small focal area of en cephalomalacia in the right occipital cortex consistent with a small chronic infarct (axial image #9 ). The corpus callosum is normal. The sella is expanded and the pituitary gland is small and sandra ened inferiorly compatible with a mostly empty sella. There are no intraorbital masses. There has been previous lens surgery bilaterally. Mild rightward nasal septal deviation is present. There is a small mucous retention cyst or mucocel e in the right sphenoid air cell. Middle ears and mastoids are unremarkable. Flow voids are present in the major intracranial arteries and dural venous sinuses. IMPRESSION: 1. No intracranial mass or acute cerebral infarct. 2. Mild chronic ischemic small vessel disease and small chronic right occipital infarct. 3. Mostly empty sella.
[2016-04-27] MEDS ORDERED: FLUOXETINE HCL 80 MG PO SCH (09:00)
--- NOTE | 2016-04-27 13:15 | SSS ---
CHIEF COMPLAINT: Weakness. When I talked to the patient on why she came to the emergency room, she told me that the nurse told her that her lips were bluish in color and that is why she came to the emergency room. HISTORY OF PRESENT ILLNESS: This patient was admitted to the hospital 2016 and discharged 03/29/2016. The reason for admission was urinary tract infection, gram positive rods, e.coli, ESBL negative. The patient was treated with Bactrim DS, one twice a day. The patient also has diabetes mellitus and is on Januvia 50 mg daily. The patient, this time according to the triage nurse , had experienced weakness in the last two weeks. The ER doctor mentioned that she had it for the last three days. In my discussion with her, the reason was her lips were bluish in color. The patient was evaluated in the emergency room and noted to have temperature of 99.5, tympanic. Oxygen saturation at room air 95, blood pressure 138/66. Rated the pain in the back as 9. The patient is taking Lortab from [facility] for chronic back problems. The patient also had CT of the head showing no acute intracranial abnormalities. CT scan of the chest with no acute cardiopulmonary processes with minimal scattered areas of ground glass opacities likely post inflammatory in the right lung base. Unchanged hepatic steatosis. Sequela of old granulomatous disease and stable mild emphysematous disease. Her labs showed normal WBC 8,050, hemoglobin 10.9, hematocrit 34.2, RDW 15.3, D-Dimer 0.88, within normal. Arterial blood gases with oxygen saturation 98, pH 7.475, elevated. PCO2 28.7, below normal. PO2 101. HCO3 21.1, Total CO2 22, base excess 3, FIO2 21. It appears that the patient was hyperventilating. Chemistry showed at BUN of 17, creatinine 1.80, estimated GFR 28. Blood sugar 93, CKMB 4.1, elevated. Troponin 0.0120. This patient did not come in complaining of chest pain. Urinalysis is completely normal. Nitrite negative, leukocyte esterase trace, WBC 0-2, RBC 0-2, no bacteria. Specific gravity 1.015. The patient was then admitted for observation. PAST PERSONAL HISTORY: Lobular sebaceous carcinoma, COPD, depression, history of pneumonia, history of GERD-seen by Dr. Dyer, history of diverticulitis, history of recurrent urinary tract infection, type II diabetes mellitus, history of TIA with right sided weakness, history of Parkinson's disease, history of seizures, history of angina. The patient from 04/29/14 until now had seven or more emergency room visits. She also has chronic kidney disease stage IV and history of tremors undiagnosed. It was felt that this patient has Parkinson's disease. The patient's tremors, however, are intermittent. I had observed her at times and there was no movement at all with her hands resting on both upper thighs. I did make her sit up and she then began having tremors of both hands, left and right, right more than left. She has more with resistance. SURGICAL HISTORY: Consisted of appendectomy, cholecystectomy, eye surgery, right total hip replacement and hysterectomy, plus lumbar surgery. She also had colon resection in 2012. She did have three lumbar surgeries. FAMILY HISTORY: Father had colon carcinoma and mother had carcinoma as well as brother. SOCIAL HISTORY: The patient is a 70 year old female , single with four children that are grown. She stopped smoking more that two years ago. Denies any alcoholic beverages. MEDICATIONS: Prior to this admission consisted of: Fluoxetine 80 mg daily Lasix 20 mg daily Symbicort 160/4.5 two puffs twice daily Seroquel 200 mg tablet at bedtime Diazepam 10 mg three times a day Neutrogena skin moisturizing cream Albuterol sulfate 1-2 puffs every four to six hours prn Hydrocodone/APAP 7.5/325 mg one tablet three times a day Nitroglycerin sublingual 0.4 mg prn Amantadine 100 mg twice a day Potassium chloride 10 mEq daily Simvastatin 20 mg daily Bactrim one tablet twice a day, may be finished Januvia 50 mg daily Nexium 20 mg twice a day Hydrochlorothiazide 12.5 mg daily ALLERGIES: Pentazocine, Nitrofurantoin, Ceftriaxone. The patient has other allergies and they are not listed. REVIEW OF SYSTEMS: CONSTITUTIONAL: The patient is alert, oriented with no fever and no chills, but has some weakness, mostly in lower extremities. She does have intermittent tremors of both hands and including the legs or feet. The patient does not have any tremors at rest with hands on both arms on the recliner. I doubt if this patient has Parkinson's disease. Looking back, this patient had been on medications which might have caused some of these motor movements. DRILLER HAND: The patient appeared to be forgetful and seemed anxious. She denies any headaches. The patient did have some history of seizure disorder, history of TIA, right sided weakness that had resolved. Diagnosed as Parkinson's disease, which I doubt. I do think she has some motor movements and maybe secondary to medications in the past. This patient was on Risperdal, but at a low dose 5 tenths of a mg twice a day back in 2014. VISUAL: The patient denies any blurred vision, double or transient loss of vision. AUDITORY: Hearing is decreased, but denies any tinnitus, pain or drainage. RESPIRATORY: The patient has cough and had stopped smoking some more than two years ago. She still has some shortness of breath with exertion such as walking from her door to the curb, which is not very far. CARDIOVASCULAR: Denies any chest pain or chest tightness. The patient claimed to have had cardiac problems in the past. GASTROINTESTINAL: The patient denies any epigastric pain or problems swallowing solids or liquids and no abdominal pain. GENITOURINARY: The patient had a urinary tract infection recently and was admitted 03/24/2016. The patient had e.coli, ESBL negative. MUSCULOSKELETAL: The patient had hip replacement and has joint pains. INTEGUMENT: No pruritus, but has some rash on the right leg, lower. It does not appear to be allergic. ENDOCRINE: Negative. The patient, however, is a type II diabetic. HEMATOLOGIC: No history of prolonged bleeding or easy bruising. PSYCHIATRIC: The patient's speech seemed to be rapid and nervous. PHYSICAL EXAMINATION: GENERAL: The patient is a 70 year old female who is alert and responsive and answers questions correctly. The complaints, however, had been variable that was given to the emergency room and what was given to me. She is not dyspneic, nor tachypneic and no circumoral cyanosis. VITAL SIGNS: Temperature on admission was 99.5, pulse 69, blood pressure 138/66 , respiratory rate 20, oxygen saturation 95 and she is 5', 195 pounds, BMI 38 plus. HEAD: Unremarkable. No jerky movements. FACE: Symmetrical and equal with no facial weakness. No remarkable tenderness to palpation under pressure in the frontal or maxillary sinus areas. EYES: Pupils equal/reactive to light about 3 mm in size. Conjunctivae somewhat pale. Sclerae not icteric. MOUTH: Unremarkable. THROAT: No inflammation, tumors or exudate. NECK: No masses. No bruit. Some tenderness in the left supraclavicular area at the site of a previous surgery. This patient was diagnosed to have sebaceous malignancy. CHEST: Essentially symmetrical and equal with good expansion with no significant tenderness to percussion. LUNGS: Breath sounds are heard in both sides. No rales or wheezing. It is somewhat diminished. HEART: Audible and regular with good tones. No murmurs. ABDOMEN: Protuberant, soft with no remarkable tenderness. No guarding. Bowel sounds are active. No masses palpable. EXTERNAL GENITALIA: Not examined. PELVIC AND RECTAL: Not performed. LOWER EXTREMITIES: Essentially symmetrical and equal with the right anterior tibial pulse absent. The rest were present. UPPER EXTREMITIES: Symmetrical and equal with intermittent tremors, coarse. Note that the patient also has some movement of the foot, but again it is intermittent. ASSESSMENT: 1. WEAKNESS, ETIOLOGY UNDETERMINED 2. MODERATE ANEMIA 3. CHRONIC KIDNEY DISEASE STAGE IV 4. INTERMITTENT COARSE TREMORS UPPER AND LOWER EXTREMITIES 5. HISTORY OF URINARY TRACT INFECTION, E.COLI, ESBL NEGATIVE, RECENT 03/25/2016 6. HISTORY OF CORONARY ARTERY DISEASE 7. HISTORY OF GERD 8. HISTORY OF SIGMOID DIVERTICULITIS 9. HISTORY OF PNEUMONIA 10. HISTORY OF CHRONIC TOBACCO USE AND ABUSE, STOPPED MORE THAN TWO YEARS AGO 11. HISTORY OF CHRONIC OBSTRUCTIVE PULMONARY DISEASE 12. HISTORY OF FALL 13. HISTORY OF TYPE II DIABETES MELLITUS 14. HISTORY OF DIARRHEA, SECONDARY TO METFORMIN 15. HISTORY OF COLON CARCINOMA 16. HISTORY OF MULTIPLE LUMBAR SURGERIES (THREE) 17. HISTORY OF PRIOR PROCEDURES APPENDECTOMY, CHOLECYSTECTOMY, RIGHT TOTAL HIP REPLACEMENT, HYSTERECTOMY, PLUS EYE SURGERY. HOSPITAL COURSE: The patient on admission to the emergency room had an oxygen saturation of 95. The arterial blood gases was unremarkable, except that the patient has a respiratory alkalosis, probably secondary to hyperventilation. Temperature on admission was 95.5 tympanic and repeat temperature some two hours and 45 minutes later was normal at 97.9. Blood pressure about the same. The patient's vital signs today showed a normal temperature ranging from 98.1 to 98.6, pulse ranging from 62-70, blood pressure normal 124/65, 125/67, 128/ 64. Respiratory rate 24, 24 and down to 20 before discharge. Oxygen saturation at room air 95, 96 and 95. The patient wanted to go home and was going home. She called her brother and I did introduce myself to him. I did tell them that I talked to her son, Nii Bardales and he told me that she has a bed at his house with a bathroom. Her brother then asked her if he will bring her to his house and the patient nodded that she would go to her sons house in [place]. I did also tell them that she needs to reduce the Januvia to a half a tablet, 25 mg instead of 50 daily and that she would need a referral to a oil field equipment mechanic because of her kidney problems, chronic kidney disease stage IV. She also needed to see a neurologist because of the tremors. The patient is asking me what was the cause of the tremors that she has from time to time. I told her that I did not know. A neurologist may be able to help explain the problems. She should resume the other medications that she had prior to this admission. I understand that the Bactrim DS had already been completed and if it is not completed, she should not take the medication. FINAL DIAGNOSIS: 1. FATIGUE, ETIOLOGY UNDETERMINED 2. RECURRENT FALLS, SECONDARY TO #1. 3. TYPE II DIABETES MELLITUS 4. COARSE TREMORS UPPER EXTREMITIES, WELL FOOT, ETIOLOGY UNDETERMINED 5. HISTORY OF CORONARY ARTERY DISEASE 6. HISTORY OF COPD 7. HISTORY OF CHRONIC TOBACCO USE AND ABUSE, STOPPED MORE THAN TWO YEARS AGO PROGNOSIS: Guarded. MTDD
== END 2016-04-26 19:05 | disposition left against medical advice (07) ==
LOC: ED 18:36 → MEDSURG B 20:40
PROVIDERS: ADMIT General Practice; ATTEND General Practice
DX: R53.83 Other fatigue (principal); R29.6 Repeated falls; M62.81 Muscle weakness (generalized); E87.3 Alkalosis; R25.1 Tremor, unspecified; E11.9 Type 2 diabetes mellitus without complications; N18.4 Chronic kidney disease, stage 4 (severe); I25.10 Atherosclerotic heart disease of native coronary artery without angina pectoris; Z87.440 Personal history of urinary (tract) infections; Z86.73 Personal history of transient ischemic attack (TIA), and cerebral infarction without residual deficits; Z87.891 Personal history of nicotine dependence; Z79.899 Other long term (current) drug therapy
CPT/HCPCS: 36415; 80053; 81001; 82550; 82553; 82803; 82962; 84484; 85025; 85379; 87081; 93005; 93010; 96372; 99217; 99219; 99284

== ENCOUNTER 2016-05-15 12:43 | Outpatient (CLI) | payer OTHER ==
[2016-05-15 13:32] LABS: BILIRUBIN,URINE Negative (NEGATIVE); KETONES,URINE Negative (NEGATIVE); LEUKOCYTE ESTERASE ,URINE 1+ (NEGATIVE); NITRITE,URINE Negative (NEGATIVE); PH,URINE 5.5 (5-9); PROTEIN,URINE Negative (NEGATIVE); URINE, BLOOD Negative (NEGATIVE)
[2016-05-15 13:36] LABS: ADD URINE MICROSCOPIC YES
[2016-05-15 13:37] LABS: BACTERIA,URINE 2+ (NOT PRESENT)
== END 2016-05-15 12:44 | disposition home or self-care (01) ==
LOC: NONPT 12:43
PROVIDERS: ATTEND Emergency Medicine
DX: N39.0 Urinary tract infection, site not specified (principal)
CPT/HCPCS: 81001; 87086

== ENCOUNTER 2016-06-18 11:58 | Outpatient (CLI) | payer OTHER ==
[2016-06-18 12:19] LABS: BASOPHILS % (AUTO) 0.6 % (0.0-3.0); EOSINOPHILS # (AUTO) 0.1 K/ul (0.0-0.7); EOSINOPHILS % (AUTO) 1.5 % (0.0-7.0); HEMOGLOBIN 11.5 g/dl (12.0-16.0); IMMATURE GRANULOCYTE % (AUTO) 0.3 % (0.0-5.0); LYMPHOCYTES # (AUTO) 1.8 K/uL (0.60-3.4); MEAN CORPUSCULAR HEMOGLOBIN 28.3 pg (27.0-31.0); MEAN CORPUSCULAR HGB CONC 31.9 (31.8-35.4); MEAN CORPUSCULAR VOLUME 88.5 fl (81.0-99.0); MONOCYTES # (AUTO) 0.5 K/uL (0.4-2.0); MONOCYTES % (AUTO) 7.7 (0-10); NEUTROPHILS % (AUTO) 61.9; PLATELET COUNT 265 10^3/uL (140-440); RED BLOOD COUNT 4.07 10^6/ul (4.20-5.40); WHITE BLOOD COUNT 6.53 K/ul (4.6-10.2)
[2016-06-18 12:23] LABS: BILIRUBIN,URINE Negative (NEGATIVE); KETONES,URINE Negative (NEGATIVE); LEUKOCYTE ESTERASE ,URINE Trace (NEGATIVE); NITRITE,URINE Negative (NEGATIVE); PROTEIN,URINE Negative (NEGATIVE); URINE, BLOOD Trace-intact (NEGATIVE)
[2016-06-18 12:28] LABS: ADD URINE MICROSCOPIC YES
[2016-06-18 12:30] LABS: BACTERIA,URINE 1+ (NOT PRESENT)
[2016-06-18 12:34] LABS: H. PYLORI ANTIBODY NEGATIVE (NEGATIVE); H.PYLORI INTERNAL QC INTERNAL QC VALID
[2016-06-18 12:38] LABS: ALBUMIN 3.4 g/dL (3.4-5.0); ALBUMIN/GLOBULIN RATIO 0.92; ANION GAP 12.4; BILIRUBIN,TOTAL 0.15 mg/dL (0.00-1.20); BUN/CREATININE RATIO 11.94; CALCIUM 9.2 mg/dL (8.2-10.2); CREATININE 1.34 mg/dL (0.60-1.30); POTASSIUM 3.4 mmol/L (3.5-5.10); TOTAL PROTEIN 7.1 g/dL (5.8-8.1)
--- NOTE | 2016-06-18 13:38 | CT ---
Exam: CT examination of the abdomen and pelvis without intravenous or oral contrast administration. Comparison: 01/12/2016. Reason for exam: Unspecified abdominal pain. FINDINGS: Image interpretation is limited by the lack of intravenous contrast administration. In the partially imaged lung bases. There are no obvious pleural effusions, or focal consolidations . 1 cm hypodensity in the right hepatic dome appears similar when compared to imaging performed 2007. The gallbladder has been removed. No obvious ductal dilatation. Granulomatous calcifications are seen within the spleen. The adrenal glands and pancreas are unremarkable. No obvious hydronephrosis or hydroureter. The left kidney is smaller than the right. No focal small bowel dilatation or transition point. No inflammatory changes are seen in the mesen teric fat of the abdomen. No intra-abdominal free air or pelvic free fluid. Evaluation of the pelvis is somewhat limited by m etallic artifact from the right hip arthroplasty. There are operative changes in the sigmoid colon. Small only fat containing periumbilical hernia. Several small inguinal lymph nodes that do not meet radiographic size criteria for enlargement. No obvious osteoblastic or osteolytic lesions. Degenerative changes in the thoracic and lumbar spine . Impression: 1. No imaging findings are seen to account for patient's abdominal pain. 2. Similar appearing right hepatic dome hypodensity not significantly changed since 2007. 3. Small only fat containing periumbilical hernia.
== END 2016-06-18 11:59 | disposition home or self-care (01) ==
LOC: RAD 11:58
PROVIDERS: ATTEND Nurse Practitioner Family
DX: R10.9 Unspecified abdominal pain (principal); R10.816 Epigastric abdominal tenderness; R63.0 Anorexia; R30.0 Dysuria; Z90.49 Acquired absence of other specified parts of digestive tract
CPT/HCPCS: 36415; 80053; 81001; 82150; 83690; 85025; 86677; 87086; 87186

== ENCOUNTER 2016-06-25 09:33 | Outpatient (CLI) ==
--- NOTE | 2016-06-25 11:29 | MAMMO ---
EXAM: Bilateral digital screening mammogram History: Screening Comparison: Bilateral mammogram 04/29/2014 Findings: MLO and CC views of bilateral breasts demonstrate scattered fibroglandular breast parench yma. Stable benign bilateral breast calcifications. There are no dominant masses, no suspicious mi crocalcifications and no architectural distortions Impression: Benign stable mammogram. Recommend followup routine screening mammography in 1 year. BIRADS 2
== END 2016-06-25 09:34 | disposition home or self-care (01) ==
LOC: RAD 09:33
PROVIDERS: ATTEND Nurse Practitioner Family
DX: Z12.31 Encounter for screening mammogram for malignant neoplasm of breast (principal)

== ENCOUNTER 2016-10-08 13:10 | Outpatient (CLI) ==
[2016-10-08 13:47] LABS: EOSINOPHILS % (AUTO) 2.3 % (0.0-7.0); HEMATOCRIT 39.6 % (37.0-47.0); HEMOGLOBIN 13.1 g/dl (12.0-16.0); LYMPHOCYTES % (AUTO) 29.9 (10.0-50.0); MEAN CORPUSCULAR HEMOGLOBIN 28.8 pg (27.0-31.0); MEAN CORPUSCULAR HGB CONC 33.1 (31.8-35.4); MONOCYTES % (AUTO) 7.7 (0-10); NEUTROPHILS % (AUTO) 58.8; PLATELET COUNT 208 10^3/uL (140-440); RED BLOOD COUNT 4.55 10^6/ul (4.20-5.40); WHITE BLOOD COUNT 6.09 K/ul (4.6-10.2)
[2016-10-08 13:48] LABS: BASOPHILS # (AUTO) 0.1 K/uL (0-0.2); EOSINOPHILS # (AUTO) 0.1 K/ul (0.0-0.7); IMMATURE GRANULOCYTE % (AUTO) 0.3 % (0.0-5.0); LYMPHOCYTES # (AUTO) 1.8 K/uL (0.60-3.4); MONOCYTES # (AUTO) 0.5 K/uL (0.4-2.0); NEUTROPHILS # (AUTO) 3.6 K/ul (2.0-6.9)
[2016-10-08 13:54] LABS: BILIRUBIN,URINE Negative (NEGATIVE); KETONES,URINE Negative (NEGATIVE); LEUKOCYTE ESTERASE ,URINE 3+ (NEGATIVE); NITRITE,URINE Positive (NEGATIVE); PROTEIN,URINE Negative (NEGATIVE); URINE, BLOOD Negative (NEGATIVE)
[2016-10-08 13:58] LABS: ADD URINE MICROSCOPIC YES
[2016-10-08 14:17] LABS: BACTERIA,URINE 2+ (NOT PRESENT)
[2016-10-08 15:44] LABS: ALBUMIN/GLOBULIN RATIO 1.18; ANION GAP 18.9; BILIRUBIN,TOTAL 0.42 mg/dL (0.00-1.20); BUN/CREATININE RATIO 11.72; CALCIUM 10.1 mg/dL (8.2-10.2); CHOL/HDL RATIO 3.1 (4.5-5.5); CREATININE 1.62 mg/dL (0.60-1.30); POTASSIUM 3.9 mmol/L (3.5-5.10); TOTAL PROTEIN 7.4 g/dL (5.8-8.1)
== END 2016-10-08 13:11 | disposition home or self-care (01) ==
LOC: LAB 13:10
PROVIDERS: ATTEND Emergency Medicine
DX: E11.9 Type 2 diabetes mellitus without complications (principal); I10 Essential (primary) hypertension; R30.0 Dysuria
CPT/HCPCS: 36415; 80053; 80061; 81001; 83036; 84443; 85025; 87086; 87186

== ENCOUNTER 2016-10-09 08:47 | Outpatient (CLI) ==
--- NOTE | 2016-10-09 10:42 | MRI ---
EXAM: MRI of the left shoulder without contrast COMPARISON: None available. HISTORY: Left shoulder pain. TECHNIQUE: Multiplanar noncontrast MR images of the left shoulder were acquired using a 1.2 Abigail m agnet. The submitted images are limited by patient motion artifact, significantly limiting anatomic detail. The technologist performing the study notes that the patient had uncontrollable shaking an d sequences were modified with the best possible quality images obtained given the patient's conditi on. FINDINGS: No recent radiographs of the left shoulder are available for comparison and radiographic correlation is recommended. There is marked supraspinatus as well as moderate infraspinatus and subscapularis tendinosis. Bursa l surface fraying of the supraspinatus at the level of the acromion extending through the level of t he insertional fibers. Linear intrasubstance fissuring/partial thickness tearing of the distal supr aspinatus which is most pronounced anteriorly. No full-thickness rotator cuff tear or tendon retrac tion. Small amount of fluid in the subacromial/subdeltoid bursa. Limited assessment of the glenoid labrum on this non arthrographic, motion limited study. Moderate glenohumeral joint osteoarthrosis. Mild posterior subluxation of the humeral head within the glenoi d fossa without an acute fracture or zachary dislocation. Physiologic amount of fluid within the join t. The long head of biceps is located within the bicipital groove with diminished size of the intra-art icular segment related to tendinosis / chronic partial tear. Marked hypertrophic degenerative changes of the acromioclavicular joint with marginal osteophytes an d capsular hypertrophy. Mild lateral downsloping of the acromion with a 2 mm subacromial spur. No evidence of an os acromiale or abnormal widening of the acromioclavicular joint space. Moderate dif fuse muscle atrophy. No soft tissue mass identified. IMPRESSION: 1. Moderate to marked rotator cuff tendinosis. Bursal surface fraying and minimal linear intrasubs tance fissuring/partial thickness tearing of the distal supraspinatus as described without a full-th ickness rotator cuff tear or tendon retraction. 2. Small amount of fluid in the subacromial/subdeltoid bursa. 3. Moderate glenohumeral joint osteoarthrosis. Mild posterior subluxation of the humeral head withi n the glenoid fossa without a zachary dislocation. 4. Marked hypertrophic degenerative changes of the acromioclavicular joint with lateral downsloping of the acromion. 5. Muscle atrophy. 6. Tendinosis / chronic partial tear of the long head of the biceps. 7. Motion limited study as described.
== END 2016-10-09 08:48 | disposition home or self-care (01) ==
LOC: RAD 08:47
PROVIDERS: ATTEND Emergency Medicine
DX: M25.512 Pain in left shoulder (principal)

== ENCOUNTER 2016-11-28 12:43 | Outpatient (CLI) | END 2016-11-28 12:44 | disposition short-term general hospital (02) | LOC: AMBL 12:43 | PROVIDERS: ATTEND Internal Medicine | DX: R11.2 Nausea with vomiting, unspecified (principal); R19.7 Diarrhea, unspecified; E11.9 Type 2 diabetes mellitus without complications; R10.30 Lower abdominal pain, unspecified; R53.1 Weakness ==

== ENCOUNTER 2017-05-07 16:37 | Inpatient (IN) | payer OTHER ==
[2017-05-07 17:24] VITALS: BMI 25.9
--- NOTE | 2017-05-07 18:29 | DI ---
EXAM: Chest AP and lateral HISTORY: Cough FINDINGS: A calcified granuloma in the left upper lobe is unchanged since 04/13/2015. The lungs are f ree of acute airspace or interstitial opacities. The aorta is normal in caliber. The heart size is n ormal. The bones are intact. No pneumothorax or pleural effusions are detected. Surgical clips are no marcello in the right upper quadrant. IMPRESSION: No acute cardiopulmonary disease. Old granulomas disease.
--- NOTE | 2017-05-07 18:31 | DI ---
EXAM: Thoracic spine; AP, lateral, and swimmer's lateral views HISTORY: Cough and back pain, T12 fracture FINDINGS: Comparison is made to a prior CT lumbar spine from 06/18/2016. There has been interval mil d compression fracture at T11. The other thoracic vertebrae maintain normal height and alignment. T here is 13 degrees of dextroscoliosis between T2 and T11. The vertebrae have normal alignment. The i ntervertebral joint spaces are mildly narrowed diffusely. No acute listhesis is appreciated. IMPRESSION: Age indeterminate mild T11 compression fracture. Mild diffuse degenerative disc disease. Mild dextroscoliosis.
[2017-05-07] MEDS ORDERED: NON-FORMULARY MEDICATION (Diclofenac Sodium [Diclofenac Sodium] 75 MG) PO PRN (19:48)
[2017-05-07] MEDS ORDERED: NITROSTAT SL PRN (19:48)
[2017-05-07] MEDS ORDERED: DIAZEPAM 20 MG PO SCH (21:00)
[2017-05-07] MEDS ORDERED: NON-FORMULARY MEDICATION (Amantadine Hcl 100 MG) PO SCH (21:00)
[2017-05-07] MEDS ORDERED: NON-FORMULARY MEDICATION (Esomeprazole Magnesium [Nexium] 20 MG) PO SCH (21:00)
[2017-05-07] MEDS ORDERED: NON-FORMULARY MEDICATION (Propranolol Hcl [Propranolol Hcl] 40 MG) PO SCH (21:00)
[2017-05-07] MEDS ORDERED: INDERAL ONE (21:27)
[2017-05-07] MEDS ORDERED: VALIUM ONE (21:27)
[2017-05-07] MEDS: PRILOSEC PO SCH (21:35)
[2017-05-07] MEDS: SODIUM CHLORIDE 1,000 ML IV SCH (22:48)
[2017-05-08] MEDS: PRILOSEC PO SCH ×2 (06:00→16:12)
[2017-05-08] MEDS ORDERED: NEURONTIN PO SCH (09:00)
[2017-05-08] MEDS ORDERED: NON-FORMULARY MEDICATION (Hydrochlorothiazide [Hydrochlorothiazide] 12.5 MG) PO SCH (09:00)
[2017-05-08] MEDS ORDERED: NON-FORMULARY MEDICATION (Simvastatin [Simvastatin] 20 MG) PO SCH (09:00)
[2017-05-08] MEDS ORDERED: FLUOXETINE HCL 80 MG PO SCH (09:00)
[2017-05-08] MEDS ORDERED: NON-FORMULARY MEDICATION (Sitagliptin Phosphate [Januvia] 25 MG) PO SCH (09:00)
[2017-05-08] MEDS: SYMBICORT 160-4.5 MCG INHALER IH SCH ×3 (09:08→21:13)
[2017-05-08] MEDS: INDERAL PO SCH ×2 (09:09→21:13)
[2017-05-08] MEDS: VALIUM PO SCH ×2 (09:09→21:13)
[2017-05-08] MEDS: JANUVIA PO SCH (09:09)
[2017-05-08] MEDS: PROZAC PO SCH (09:09)
[2017-05-08] MEDS: MICRO-K CAP PO SCH (09:10)
[2017-05-08] MEDS: ZOCOR PO SCH (09:10)
[2017-05-08] MEDS: HYDROCHLOROTHIAZIDE PO SCH (09:10)
[2017-05-08] MEDS: SYMMETREL PO SCH ×2 (09:10→21:13)
[2017-05-08] MEDS: DICLOFENAC SODIUM PO PRN (09:59)
[2017-05-08] MEDS: NAMENDA PO SCH (11:00)
[2017-05-08] MEDS ORDERED: MILK OF MAGNESIA PO STA (15:16)
[2017-05-08] MEDS: DEMEROL 25 MG/ML VIAL IVP PRN (15:17)
[2017-05-08] MEDS: SODIUM CHLORIDE 1,000 ML IV SCH ×2 (17:20→21:55)
[2017-05-08] MEDS ORDERED: ATIVAN PO ONE (21:00)
[2017-05-08] MEDS: MIRALAX PO SCH (21:14)
[2017-05-09] MEDS: PRILOSEC PO SCH ×2 (05:46→17:25)
[2017-05-09] MEDS: SYMBICORT 160-4.5 MCG INHALER IH SCH ×2 (08:37→20:50)
[2017-05-09] MEDS: HYDROCHLOROTHIAZIDE PO SCH (08:37)
[2017-05-09] MEDS: MICRO-K CAP PO SCH (08:37)
[2017-05-09] MEDS: VALIUM PO SCH ×2 (08:38→20:49)
[2017-05-09] MEDS: ZOCOR PO SCH (08:38)
[2017-05-09] MEDS: SYMMETREL PO SCH ×2 (08:38→20:49)
[2017-05-09] MEDS: NAMENDA PO SCH (08:38)
[2017-05-09] MEDS: INDERAL PO SCH ×2 (08:38→20:49)
[2017-05-09] MEDS: JANUVIA PO SCH (08:38)
[2017-05-09] MEDS: PROZAC PO SCH (08:38)
[2017-05-09] MEDS: MIRALAX PO SCH ×2 (08:39→20:50)
[2017-05-09] MEDS: DEMEROL 25 MG/ML VIAL IVP PRN ×2 (09:10→19:16)
--- NOTE | 2017-05-09 10:51 | PN ---
DATE OF SERVICE: 05/08/17 SUBJECTIVE: The patient is a 71 year old female who recently in the [facility] with pneumonia and before that the patient was there for status post fall with T11 Compression fracture. The patient has seen Dr. Gillespie and they suggested a nonsurgical evaluation. The patient has been at home, daughters are helping some the patient is not been able to walk lately, needing more help and assistance. The patient is falling frequently and the patient's family is worried that she may break other bones. She was brought to the office and at that time the patient was admitted to the hospital. X-ray of the C-Spine did again show the T11 fracture. As of today the patient is complaining of some hip pain and the back pain. REVIEW OF SYSTEMS: CONSTITUTIONAL: No fever, no chills. HEENT: Normal. ENDOCRINE: No weight gain, no weight loss. CVS: No angina symptoms. No CHF symptoms. No palpitations. No atypical chest pain for CAD. No shortness of breath. No PND, no orthopnea. RESPIRATORY: No cough, no hemoptysis. GI: No nausea, no vomiting. No abdominal pain. : No hematuria. No polyuria. MUSCULOSKELETAL: No joint swelling. PSYCHIATRIC: Not anxious. No depression. No suicidal thoughts. No homicidal thoughts. SKIN: Intact. No rash. PHYSICAL EXAMINATION: V/S: Blood pressure 142/71, respiratory rate 17, heart rate 64, temperature 98.6 with saturation 97%. HEENT: Normocephalic, atraumatic. Mucosa dry. Pallor positive. No icterus. NECK: Supple. No JVD, no carotid bruit. No lymphadenopathy. LUNGS: Decreased and basilar crackles. Clear to auscultation. No rales or rhonchi. HEART: S1, S2 normal. No S3. No murmur, gallop or regurgitation. ABDOMEN: Soft, nontender. Bowel sounds active. No rigidity. No rebound or guarding. No CVA tenderness. EXTREMITIES: No pedal edema. No clubbing or cyanosis MUSCULOSKELETAL: No joint swelling. NEUROLOGIC: Awake, alert, oriented times three. No focal deficit. LYMPHATIC: No lymph nodes palpable. SKIN: Intact. LABS: WBC 13.80, hgb 11.5, hct 34.7, plt count 341, sodium 138, potassium 4.1, chloride 104, bicarb 21, BUN 33, creatinine 1.20, urine is leukocyte esterase positive, nitrates negative. ASSESSMENT: 1. Failure to thrive 2. Recurrent falls 3. T11 compression fracture 4. Dehydration 5. History of Parkinson's disease 6. Alzheimer's Dementia with Mini Mental Status score is 21-30 7. Coronary artery disease 8. Congestive heart failure 9. Dyslipidemia 10.History of TIA PLAN: 1. Continue IV fluids at 42 ml per hour 2. Start the patient on Namenda 10mg PO daily 3. Accu-checks with coverage 4. Fall precautions Will follow the patient in daily rounds. TIME SPENT: More than 35 minutes MTDD
[2017-05-09] MEDS: HUMULIN R SUBCUT PRN (11:05)
--- NOTE | 2017-05-09 15:54 | RS.PTINEVL ---
Subjective - Patient information Date of Evaluation: 05/09/17 Date of Arrival on Unit: 05/07/17 Admitted From:: Home Diagnosis: failure to thrive, dehydration Usual Living Arrangement: [facility] Living Arrangement Comments: Right before admit pt was at home with dtr, pt had just been at [facility] and transferred to [facility] then to r[facility] home due to pt refused to return to [facility]. Home Environment: House, Stairs (few) Medical History: CVA/TIA, COPD, CHF Medical History Comments:: T11 compression fx (requires TLSO brace on when up), Hep B, Parkinson's disease, Alzheimers dz. LATEX ALLERGY?: No Surgical History: Hip Replacement, Cholecystectomy, Hysterectomy Surgical History Comments:: colon resection, B cataract sx Medications: see chart - Level of function Prior to this admission, the patient could do the following:: Partially Dependent Ambulation Abilities prior to this admission: pt with frequent falls and unable to amb prior to admission Current Level of Function: Dependent Current Equipment Used at Home: wheelchair, back brace (back fx), shower chair Pain Assessement - Location Upper Back Description: Aching Pain Behavior: Moaning, Irritability, Facial Grimacing Pain Aggravating Factors: Changing Position, Exercise/Activity, Standing, Sitting, Walking Pain Alleviating Factors: Medication Effects of Pain: pt unable to rate pain, grimaces with movement Interventions - Objective Patient Orientation: Person Current Interventions: IV's, Telemetry Range of Motion - ROM Right Upper Extremity AROM: WFL's Left Upper Extremity AROM: WFL's Right Lower Extremity AROM: WFL's Left Lower Extremity AROM: WFL's Muscle Strength - Muscle Strength Right Upper Extremity Strength: Mild Weakness (grossly 3+ to 4-/5) Left Upper Extremity Strength: Mild Weakness (grossly 3+ to 4-/5) Right Lower Extremity Strength: Mild Weakness (hip flex 3/5, knee flex/ext 3+/5 , ankle dF/PF 4-/5) Left Lower Extremity Strength: Mild Weakness (hip flex 3/5, knee flex/ext 3+/5, ankle dF/PF 4-/5) Sensation - Sensation Right Upper Extremity Sensation: Intact/Normal Left Upper Extremity Sensation: Intact/Normal Right Lower Extremity Sensation: Impaired Left Lower Extremity Sensation: Impaired Comments: pt c/o numbness and tingling BLE Palpation Palpation Findings: Muscle Guarding (t spine paraspinals) Balance - Sitting Balance and Reactions Static Sitting Balance: Fair Dynamic Sitting Balance: Poor Sitting Equilibrium Reactions: Delayed Left, Delayed Right Sitting Protective Reactions: Delayed Left, Delayed Right - Standing Balance and Reactions Static Standing Balance: Poor Dynamic Standing Balance: Zero Standing Equilibrium Reactions: Delayed Left, Delayed Right Standing Protective Reactions: Delayed Left, Delayed Right - Comments Balance Assessment Comments: pt able to maintain static sitting with SBA sitting at edge of bed without resistance, pt unable to maintain against resistance. Static standing is poor requires mod assist of 2 to maintain standing Functional Mobility - Bed Mobility Rolling R/L: Max Assist, 2 person assist Supine to Sit: Mod Assist, Max Assist, 2 person assist - Transfers Sit to Stand: Mod Assist, 2 person assist Stand to Sit: Mod Assist, 2 person assist - Safety Awareness Safety Awareness: Poor CHIQUIS INDEX SCORE: n/a Ambulation - Ambulation Assistive Device Used: Rolling Walker Orthotic/Prosthetic Device: Yes (TLSO brace) Distance: approx 4 steps bed to bsc to recliner Assistance needed with Ambulation: Min Assist, Mod Assist, 2 person assist Gait Deviations: Narrow Based gait, Forward posture, Short stride, Deviates from path Ambulation Comments: pt with significant flexed posture, decreased step length as well as requires assist to advance rwx. Factors Affecting Ambulation: Decreased Balance, Pain, Weakness, Decreased Safety, Cognitive Status, Limited Endurance Treatment time - Time with patient Total treatment time: 28 Patient Education - Education Patient Education: Activity Modification, Education of Plan of Care Teaching Recipient: Patient Teaching Methods: Discussion (Discussion with patient regarding POC as well as importance of participating in PT.) Assessment - Assessment Problem List:: Decreased level of function, Requires training/education, Decreased safety/Risk of falls, Weakness, Pain limits previous level of function , Cognitive status limits abilities Rehab Potential: Fair Further Therapy Indicated?: Yes Evaluation Complexity: HISTORY: Medium (CHF, COPD, Parkinson's, Alzheimers, age , ), EXAM OF BODY SYSTEMS: High (musc, neuro, cardio, cognition), CLINICAL PRESENTATION: Medium (evolving), CLINICAL DECISION MAKING: Medium Short Term Goals GOAL #1: pt demonstrate rolling with bedrails with mod x 1 Goal to be met by: 05/12/17 GOAL #2: Transfer sup to/from sit to/from stand mod x 1 Goal to be met by: 05/12/17 GOAL #3: pt amb 25ft with rwx with brace with min to mod x 2 Goal to be met by: 05/12/17 [facility] Goals GOAL #1: pt rolling, bridging, scooting with min assist Goal to be met by: 05/14/17 GOAL #2: pt transfer sup to/from sit to/from stand min x 1 Goal to be met by: 05/14/17 GOAL #3: pt amb 50ft with rwx with brace with min-mod assist of 1 Goal to be met by: 05/14/17 Plan Plan of Care: Therapeutic EX, Therapeutic Activity Other:: gait training Frequency of Treatment: 1-2 X day, as tolerated Duration of Treatment: 5 days Anticipated Discharge Destination: LTC vs home with 24 hour care Has the Physician been added for Co-signature?: Yes
[2017-05-09] MEDS: SODIUM CHLORIDE 1,000 ML IV SCH (20:49)
[2017-05-10] MEDS: PRILOSEC PO SCH ×2 (05:34→16:59)
[2017-05-10] MEDS: DEMEROL 25 MG/ML VIAL IVP PRN ×2 (06:43→19:07)
--- NOTE | 2017-05-10 08:55 | RS.OTINEVL ---
Subjective - Patient information Date of Evaluation: 05/09/17 Date of Arrival on Unit: 05/07/17 Admitted From:: Home Usual Living Arrangement: [facility] Living Arrangement Comments: Right before admit pt was at home with dtr, pt had just been at [facility] and transferred to [facility] then to [facility] due to pt refused to return to [facility]. Home Environment: House, Stairs (few) Medical History: CVA/TIA, COPD, CHF Medical History Comments:: T11 compression fx (requires TLSO brace on when up), Hep B, Parkinson's disease, Alzheimers dz. LATEX ALLERGY?: No Surgical History: Hip Replacement, Cholecystectomy, Hysterectomy Surgical History Comments:: colon resection, B cataract sx Medications: see chart Subjective Information/ Patient Comments:: "I need some white hose for my legs, I have diabetic neuropathy.I am hurting so bad because of my diabetic pain. I am hurting to bad to do this right now. I had an obstruction in my abdomen and it was because of diverticulosis and diverticulitis." "I really need those white socks for me legs." - Level of function Prior to this admission, the patient could do the following:: Partially Dependent Ambulation Abilities prior to this admission: Pt wears a back brace and completes transfers with 2 people moderate assistance due to the patient being so distracted and confused. Current Equipment Used at Home: wheelchair, back brace (back fx), shower chair Pain Assessment - Pain Pain Score: 5 Side: bilateral Pain Location Body Site: Back Pain Aggravating Factors: ADL's, Changing Position, Standing, Sitting, Walking Pain Alleviating Factors: Medication Interventions - Objective Patient Orientation: Person, Place, Situation Current Interventions: IV's, Telemetry Observation: Pt is very confused. Pt is talkative and will continue talking all of the time. Interventions - ROM Right Upper Extremity AROM: WFL's Left Upper Extremity AROM: WFL's - Strength Right Upper Extremity Strength: Mild Weakness Left Upper Extremity Strength: Mild Weakness - Sensation Right Upper Extremity Sensation: Intact/Normal Left Upper Extremity Sensation: Intact/Normal Balance - Sitting Balance Static Sitting Balance: Fair Dynamic Sitting Balance: Fair - Standing Balance Static Standing Balance: Poor Dynamic Standing Balance: Poor - Comments Balance Assessment Comments: Pt has poor balance. ADL Skills - Self Feeding Self Feeding: Independent - Grooming Grooming: Min Assist - Bathing Bathing UE: Not Tested Bathing LE: Not Tested - Dressing Dressing UE: Not Tested Dressing LE: Not Tested - Toilet Management Toileting Management: Supervision Functional Mobility - Bed Mobility Rolling R/L: Min Assist Scooting: Min Assist Supine to Sit: Min Assist, 2 person assist Sit to Supine: Mod Assist, 2 person assist - Transfers Sit to Stand: Min Assist, 2 person assist Stand to Sit: Min Assist, 2 person assist Stand Pivot Transfers: Min Assist, 2 person assist - Ambulation Weight Bearing Status: FWB Assistive Device Used: Rolling Walker Assistance needed with Ambulation: Min Assist, 2 person assist - Safety Awareness Safety Awareness: Good CHIQUIS INDEX SCORE: 10/20 Additional Treatment Performed - Time with patient Total treatment time: 26 Activities Patient Interests:: Watching Television Patient Education Patient Education: Education of diagnosis, Education of Plan of Care Teaching Recipient: Patient Teaching Methods: Discussion Assessment Problem List:: Decreased level of function, Decreased safety/Risk of falls, Weakness, Pain limits previous level of function Rehab Potential: Good Further Therapy Indicated?: Yes Evaluation Complexity: HISTORY: Medium, EXAM OF BODY SYSTEMS: Medium, CLINICAL DECISION MAKING: Medium Short Term Goals - Goals GOAL 1: To be Sup for sink level ADLS. Goal to be met by: 05/15/17 GOAL 2: To increase BUE strength to 4/5. Goal to be met by: 05/15/17 GOAL 3: To increase dynamic std. balance to Fair + Goal to be met by: 05/15/17 GOAL 4: Pt to increase toilet transfer to CGA Goal to be met by: 05/15/17 Care Home Goals GOAL 1: To be Sup for sink level ADLS. Goal to be met by: 05/17/17 GOAL 2: To increase BUE strength to 4+/5. Goal to be met by: 05/17/17 GOAL 3: To increase dynamic std. balance to Good. Goal to be met by: 05/17/17 Plan Plan of Care: Therapeutic EX, Neuromuscular Re-Educ, Therapeutic Activity, Self- Care/Home Management Frequency of Treatment: 1-2 X day, as tolerated Duration of Treatment: 2 Weeks Anticipated Discharge Destination: Care Home Care Facility Has the Physician been added for Co-signature?: Yes
[2017-05-10] MEDS: SYMBICORT 160-4.5 MCG INHALER IH SCH ×2 (09:14→20:20)
[2017-05-10] MEDS: VALIUM PO SCH ×2 (09:14→20:20)
[2017-05-10] MEDS: HYDROCHLOROTHIAZIDE PO SCH (09:15)
[2017-05-10] MEDS: SYMMETREL PO SCH ×2 (09:15→20:20)
[2017-05-10] MEDS: INDERAL PO SCH ×2 (09:16→20:20)
[2017-05-10] MEDS: NAMENDA PO SCH (09:16)
[2017-05-10] MEDS: MICRO-K CAP PO SCH (09:16)
[2017-05-10] MEDS: PROZAC PO SCH (09:16)
[2017-05-10] MEDS: JANUVIA PO SCH (09:17)
[2017-05-10] MEDS: ZOCOR PO SCH (09:17)
[2017-05-10] MEDS: MIRALAX PO SCH ×2 (09:18→20:21)
[2017-05-10] MEDS: SODIUM CHLORIDE 1,000 ML IV SCH (21:51)
[2017-05-11] MEDS: DEMEROL 25 MG/ML VIAL IVP PRN ×4 (02:45→23:44)
[2017-05-11] MEDS: PRILOSEC PO SCH ×2 (06:31→16:15)
[2017-05-11] MEDS: JANUVIA PO SCH (10:00)
[2017-05-11] MEDS: MIRALAX PO SCH ×2 (10:00→21:38)
[2017-05-11] MEDS: VALIUM PO SCH ×2 (10:00→21:39)
[2017-05-11] MEDS: ZOCOR PO SCH (10:00)
[2017-05-11] MEDS: MICRO-K CAP PO SCH (10:00)
[2017-05-11] MEDS: INDERAL PO SCH ×2 (10:00→21:39)
[2017-05-11] MEDS: SYMMETREL PO SCH ×2 (10:00→21:39)
[2017-05-11] MEDS: PROZAC PO SCH (10:00)
[2017-05-11] MEDS: NAMENDA PO SCH (10:00)
[2017-05-11] MEDS: SYMBICORT 160-4.5 MCG INHALER IH SCH ×2 (10:00→21:38)
[2017-05-11] MEDS: HYDROCHLOROTHIAZIDE PO SCH (10:39)
[2017-05-11] MEDS: SODIUM CHLORIDE 1,000 ML IV SCH (21:58)
[2017-05-12] MEDS: DEMEROL 25 MG/ML VIAL IVP PRN ×3 (05:29→21:40)
[2017-05-12] MEDS: PRILOSEC PO SCH ×2 (05:30→16:28)
[2017-05-12] MEDS: PROZAC PO SCH (09:13)
[2017-05-12] MEDS: SYMBICORT 160-4.5 MCG INHALER IH SCH ×2 (09:13→21:31)
[2017-05-12] MEDS: ZOCOR PO SCH (09:14)
[2017-05-12] MEDS: MICRO-K CAP PO SCH (09:14)
[2017-05-12] MEDS: VALIUM PO SCH ×2 (09:14→21:29)
[2017-05-12] MEDS: HYDROCHLOROTHIAZIDE PO SCH (09:14)
[2017-05-12] MEDS: JANUVIA PO SCH (09:14)
[2017-05-12] MEDS: SYMMETREL PO SCH ×2 (09:15→21:29)
[2017-05-12] MEDS: INDERAL PO SCH ×2 (09:15→21:29)
[2017-05-12] MEDS: NAMENDA PO SCH (09:15)
[2017-05-12] MEDS: MIRALAX PO SCH ×2 (09:18→21:30)
[2017-05-13] MEDS: SODIUM CHLORIDE 1,000 ML IV SCH (01:10)
[2017-05-13] MEDS: PRILOSEC PO SCH ×2 (05:47→16:31)
[2017-05-13] MEDS: NORCO 5-325 PO SCH ×2 (09:00→20:39)
[2017-05-13] MEDS: SYMMETREL PO SCH ×2 (09:00→20:39)
[2017-05-13] MEDS: ZOCOR PO SCH (09:00)
[2017-05-13] MEDS: VALIUM PO SCH ×2 (09:00→20:39)
[2017-05-13] MEDS: PROZAC PO SCH (09:01)
[2017-05-13] MEDS: MICRO-K CAP PO SCH (09:01)
[2017-05-13] MEDS: NAMENDA PO SCH (09:01)
[2017-05-13] MEDS: HYDROCHLOROTHIAZIDE PO SCH (09:01)
[2017-05-13] MEDS: JANUVIA PO SCH (09:01)
[2017-05-13] MEDS: INDERAL PO SCH ×2 (09:01→20:37)
[2017-05-13] MEDS: SYMBICORT 160-4.5 MCG INHALER IH SCH ×2 (09:02→20:37)
[2017-05-13] MEDS: MIRALAX PO SCH ×2 (09:02→20:40)
[2017-05-13] MEDS: HUMULIN R SUBCUT PRN (16:32)
[2017-05-14] MEDS: SODIUM CHLORIDE 1,000 ML IV SCH (03:47)
[2017-05-14] MEDS: PRILOSEC PO SCH ×2 (05:47→16:29)
[2017-05-14] MEDS: VALIUM PO SCH ×2 (08:34→20:33)
[2017-05-14] MEDS: SYMMETREL PO SCH ×2 (08:34→20:34)
[2017-05-14] MEDS: ZOCOR PO SCH (08:34)
[2017-05-14] MEDS: PROZAC PO SCH (08:34)
[2017-05-14] MEDS: SYMBICORT 160-4.5 MCG INHALER IH SCH ×2 (08:34→20:33)
[2017-05-14] MEDS: MICRO-K CAP PO SCH (08:35)
[2017-05-14] MEDS: HYDROCHLOROTHIAZIDE PO SCH (08:36)
[2017-05-14] MEDS: INDERAL PO SCH ×2 (08:36→20:33)
[2017-05-14] MEDS: NORCO 5-325 PO SCH ×2 (08:36→20:33)
[2017-05-14] MEDS: JANUVIA PO SCH (08:36)
[2017-05-14] MEDS: NAMENDA PO SCH ×2 (08:36→20:33)
[2017-05-14] MEDS: MIRALAX PO SCH ×2 (08:37→20:34)
[2017-05-15] MEDS: NYSTOP POWDER TP SCH ×3 (02:59→21:15)
[2017-05-15] MEDS: PRILOSEC PO SCH ×2 (05:43→17:57)
[2017-05-15] MEDS: SYMMETREL PO SCH ×2 (09:03→21:16)
[2017-05-15] MEDS: DICLOFENAC SODIUM PO PRN (09:04)
[2017-05-15] MEDS: VALIUM PO SCH ×2 (09:04→21:16)
[2017-05-15] MEDS: ZOCOR PO SCH (09:04)
[2017-05-15] MEDS: NORCO 5-325 PO SCH ×2 (09:04→21:16)
[2017-05-15] MEDS: MICRO-K CAP PO SCH (09:05)
[2017-05-15] MEDS: JANUVIA PO SCH (09:05)
[2017-05-15] MEDS: MIRALAX PO SCH ×2 (09:05→21:16)
[2017-05-15] MEDS: NAMENDA PO SCH ×2 (09:06→21:21)
[2017-05-15] MEDS: PROZAC PO SCH (09:06)
--- NOTE | 2017-05-15 09:56 | PN ---
DATE OF SERVICE: 05/14/17 SUBJECTIVE: The patient was admitted with recent history of the back fracture for the physical therapy and occupation therapy. The patient is participating in that. Refuses to go to the group home. REVIEW OF SYSTEMS: CONSTITUTIONAL: No fever, no chills. HEENT: Normal. ENDOCRINE: No weight gain, no weight loss. CVS: No angina symptoms. No CHF symptoms. No palpitations. No atypical chest pain for CAD. No shortness of breath. No PND, no orthopnea. RESPIRATORY: No cough, no hemoptysis. GI: No nausea, no vomiting. No abdominal pain. : No hematuria. No polyuria. MUSCULOSKELETAL: No joint swelling. PSYCHIATRIC: Not anxious. No depression. No suicidal thoughts. No homicidal thoughts. SKIN: Intact. No rash. PHYSICAL EXAMINATION: V/S: Blood pressure 120/64, respiratory rate 20, heart rate 54, temperature 97.9 with saturation 98. HEENT: Normocephalic, atraumatic. Mucosa dry. Pallor positive. No icterus. NECK: Supple. No JVD, no carotid bruit. No lymphadenopathy. LUNGS: Clear to auscultation. No rales or rhonchi. HEART: S1, S2 normal. No S3. No murmur, gallop or regurgitation. Midthoracic paraspinal tenderness is present ABDOMEN: Soft, nontender. Bowel sounds active. No rigidity. No rebound or guarding. No CVA tenderness. EXTREMITIES: No pedal edema. No clubbing or cyanosis MUSCULOSKELETAL: No joint swelling. NEUROLOGIC: Awake, alert, oriented times three. No focal deficit. LYMPHATIC: No lymph nodes palpable. SKIN: Intact. LABS: WBC 10.67, hgb 10.5, hct 32.3, plt count 215, sodium 136, potassium 4.0, chloride 103, bicarb 24, BUN 25, creatinine 1.10. ASSESSMENT: 1. Status post fall with T 11 fracture 2. Recurrent falls 3. Diabetes 4. Alzheimer's Dementia 5. Parkinson's disease PLAN: 1. Continue physical therapy and occupation therapy 2. Fall precautions 3. Will increase Namenda 10mg twice a day from 10mg PO daily TIME SPENT: More than 35 minutes MTDD
[2017-05-15] MEDS: SYMBICORT 160-4.5 MCG INHALER IH SCH ×2 (10:23→21:16)
[2017-05-15] MEDS: INDERAL PO SCH ×2 (10:24→21:16)
[2017-05-15] MEDS: HYDROCHLOROTHIAZIDE PO SCH (10:27)
[2017-05-15] MEDS: HUMULIN R SUBCUT PRN (12:26)
--- NOTE | 2017-05-15 13:52 | PN ---
DATE OF SERVICE: 05/13/17 SUBJECTIVE: The patient was doing the physical here and feels a little bit more strength in the upper extremities. Walking with the walk with help. No falls. Still having low mid back pain. The patient doesn't want the Demerol all the time she wants to start her pain medication which she used to take Hydrocodone but they were stopped because the patient was abusing them. She requests sincerely that she wants to get back on them, they were helping good. REVIEW OF SYSTEMS: CONSTITUTIONAL: No fever, no chills. HEENT: Normal. ENDOCRINE: No weight gain, no weight loss. CVS: No angina symptoms. No CHF symptoms. No palpitations. No atypical chest pain for CAD. No shortness of breath. No PND, no orthopnea. RESPIRATORY: No cough, no hemoptysis. GI: No nausea, no vomiting. No abdominal pain. : No hematuria. No polyuria. MUSCULOSKELETAL: No joint swelling. PSYCHIATRIC: Not anxious. No depression. No suicidal thoughts. No homicidal thoughts. SKIN: Intact. No rash. PHYSICAL EXAMINATION: V/S: Blood pressure 107/66, respiratory rate 12, heart rate 52, temperature 97.4 with saturation 97%. HEENT: Normocephalic, atraumatic. Mucosa dry. Pallor positive. No icterus. NECK: Supple. No JVD, no carotid bruit. No lymphadenopathy. LUNGS: Bilateral entry is decreased and clear to auscultation. No rales or rhonchi. HEART: S1, S2 normal. No S3. No murmur, gallop or regurgitation. ABDOMEN: Soft, nontender. Bowel sounds active. No rigidity. No rebound or guarding. No CVA tenderness. EXTREMITIES: No pedal edema. No clubbing or cyanosis MUSCULOSKELETAL: No joint swelling. Midthoracic paraspinal tenderness present. NEUROLOGIC: Awake, alert, oriented times three. No focal deficit. LYMPHATIC: No lymph nodes palpable. SKIN: Intact. LABS: WBC 10.67, hgb 10.5, hct 32.3, plt count 215, sodium 136, potassium 4.0, chloride 103, bicarb 24, BUN 25, creatinine 1.10, glucose 100. ASSESSMENT: 1. Status post fall with T11 compression fracture, seen by Dr. Gillespie when she was at the [facility], he suggests nonsurgical evaluation and treatment. 2. Chronic pain syndrome 3. Alzheimer's Dementia 4. Parkinson's Disease 5. Osteoarthritis 6. DJD spine PLAN: 1. Hydrocodone 5mg twice a day for mild to moderate pain and moderate to severe pain will give Dimerol 2. Fall precautions 3. Continue the physical and occupational therapy TIME SPENT: More than 35 minutes MTDD
--- NOTE | 2017-05-15 14:38 | PN ---
DATE OF SERVICE: 05/12/17 SUBJECTIVE: The patient is complaining about the lower back pain been getting more and she says that she doesn't want to be put hooked onto the pain medications. She is participating in the physical therapy group. The patient is happy. The patient again refuses to go to the correction at this time. REVIEW OF SYSTEMS: CONSTITUTIONAL: No fever, no chills. HEENT: Normal. ENDOCRINE: No weight gain, no weight loss. CVS: No angina symptoms. No CHF symptoms. No palpitations. No atypical chest pain for CAD. No shortness of breath. No PND, no orthopnea. RESPIRATORY: No cough, no hemoptysis. GI: No nausea, no vomiting. No abdominal pain. : No hematuria. No polyuria. MUSCULOSKELETAL: No joint swelling. PSYCHIATRIC: Not anxious. No depression. No suicidal thoughts. No homicidal thoughts. SKIN: Intact. No rash. PHYSICAL EXAMINATION: V/S: blood pressure 113/49, respiratory rate 12, heart rate 53, temperature 97.8 and saturation 97%. HEENT: Normocephalic, atraumatic. Mucosa dry. Pallor positive. no icterus. NECK: Supple. No JVD, no carotid bruit. No lymphadenopathy. LUNGS: Decreased and clear to auscultation. No rales or rhonchi. HEART: S1, S2 normal. No S3. No murmur, gallop or regurgitation. ABDOMEN: Soft, nontender. Bowel sounds active. No rigidity. No rebound or guarding. No CVA tenderness. EXTREMITIES: No pedal edema. No clubbing or cyanosis MUSCULOSKELETAL: No joint swelling. Midthoracic paraspinal tenderness present. NEUROLOGIC: Awake, alert, oriented times three. No focal deficit. LYMPHATIC: No lymph nodes palpable. SKIN: Intact. The patient has IV site in the right foot which area looks good and healthy. No signs of inflammation. LABS: WBC 10.61, hgb 10.5, hct 32.3, plt count 215, sodium 136, potassium 4.0, chloride 103, bicarb 24, BUN 25, creatinine 1.01. ASSESSMENT: 1. Status post fall with T11 fracture 2. Failure to thrive 3. DJD spine 4. Osteoarthritis 5. Alzheimer's Dementia 6. Parkinson's disease 7. Recurrent falls 8. Diabetes 9. Hypertension PLAN: 1. Continue the physical therapy and occupational therapy 2. Continue the Demerol 3. IV fluids 4. Daily I&O's 5. Fall precautions TIME SPENT: More than 35 minutes MTDD
--- NOTE | 2017-05-15 15:17 | PN ---
DATE OF SERVICE: 05/11/17 SUBJECTIVE: The patient is still having the back pain for the T11 fracture and hip pain. Demerol three times a day as needed is not helping her. Some coughing and congestion. She did participate in the physical therapy and the patient is happy about it. REVIEW OF SYSTEMS: CONSTITUTIONAL: No fever, no chills. HEENT: Normal. ENDOCRINE: No weight gain, no weight loss. CVS: No angina symptoms. No CHF symptoms. No palpitations. No atypical chest pain for CAD. No shortness of breath. No PND, no orthopnea. RESPIRATORY: No cough, no hemoptysis. GI: No nausea, no vomiting. No abdominal pain. : No hematuria. No polyuria. MUSCULOSKELETAL: No joint swelling. PSYCHIATRIC: Not anxious. No depression. No suicidal thoughts. No homicidal thoughts. SKIN: Intact. No rash. PHYSICAL EXAMINATION: V/S: Blood pressure 106/56, respiratory rate 16, heart rate 52 and saturation is 97 HEENT: Normocephalic, atraumatic. Mucosa dry. Pallor positive. No icterus. NECK: Supple. No JVD, no carotid bruit. No lymphadenopathy. LUNGS: Decreased and basilar crackles. No rales or rhonchi. HEART: S1, S2 normal. No S3. No murmur, gallop or regurgitation. ABDOMEN: Soft, nontender. Bowel sounds active. No rigidity. No rebound or guarding. No CVA tenderness. EXTREMITIES: No pedal edema. No clubbing or cyanosis MUSCULOSKELETAL: No joint swelling. Thoracic midback area paraspinal tenderness is present. NEUROLOGIC: Awake, alert, oriented times three. No focal deficit. LYMPHATIC: No lymph nodes palpable. SKIN: Intact. LABS: WBC 10.67, hgb 10.5, hct 32.3, plt count 215, sodium 136, potassium 4.0, chloride 103, bicarb 24, BUN 25, creatinine 1.10 and glucose 100. ASSESSMENT: 1. Status post fall with T11 acute fracture, seen Dr. Gillespie nonsurgical treatment 2. Diabetes 3. Hypertension 4. Parkinson's Disease 5. Alzheimer's Dementia, mini mental status is 21. 6. Dyslipidemia PLAN: 1. Increase the Demerol to Q 6 hours PRN 2. Continue the physical therapy and occupation therapy 3. Fall precautions 4. IV fluids at 40ml per hour 5. Accu-checks with coverage TIME SPENT: More than 35 minutes MTDD
--- NOTE | 2017-05-15 15:33 | PN ---
DATE OF SERVICE: 05/10/17 SUBJECTIVE: The patient is more awake and alert been complaining that she don't want to go to the [facility] but I did explain that given history of her frequent falls and fracture in the back that first we are going to do the physical therapy evaluation and if she does pass the physical therapy as promised that I can let her go to the home but if she does not pass the physical therapy she has to go back to the [facility]. She verbalized understanding. REVIEW OF SYSTEMS: CONSTITUTIONAL: No fever, no chills. HEENT: Normal. ENDOCRINE: No weight gain, no weight loss. CVS: No angina symptoms. No CHF symptoms. No palpitations. No atypical chest pain for CAD. No shortness of breath. No PND, no orthopnea. RESPIRATORY: No cough, no hemoptysis. GI: No nausea, no vomiting. No abdominal pain. : No hematuria. No polyuria. MUSCULOSKELETAL: No joint swelling. PSYCHIATRIC: Not anxious. No depression. No suicidal thoughts. No homicidal thoughts. SKIN: Intact. No rash. PHYSICAL EXAMINATION: V/S: Blood pressure 115/65, respiratory rate 16, heart rate 55, temperature 98, saturation 94. HEENT: Normocephalic, atraumatic. Mucosa dry. Pallor positive. No icterus. NECK: Supple. No JVD, no carotid bruit. No lymphadenopathy. LUNGS: Decreased and basilar crackles. No rales or rhonchi. HEART: S1, S2 normal. No S3. No murmur, gallop or regurgitation. ABDOMEN: Soft, nontender. Bowel sounds active. No rigidity. No rebound or guarding. No CVA tenderness. EXTREMITIES: No pedal edema. No clubbing or cyanosis MUSCULOSKELETAL: No joint swelling. NEUROLOGIC: Awake, alert, oriented times three. No focal deficit. LYMPHATIC: No lymph nodes palpable. SKIN: Intact. LABS: WBC 1437, hgb 11.0, hct 33.6, plt count 283, sodium 139, potassium 4.5, chloride 104, bicarb 26, BUN 28, creatinine 1.24 and glucose 81. ASSESSMENT: 1. Status fall with T11 fracture, see Dr. Gillespie spine surgeon non surgical evaluation 2. Failure to thrive 3. Recurrent falls 4. Anemia 5. Hypertension 6. Diabetes 7. Dyslipidemia 8. Osteoarthritis 9. DJD spine PLAN: 1. Physical therapy and occupational therapy evaluation 2. Fall precautions 3. Continue Demerol for the pain TIME SPENT: More than 35 minutes MTDD
--- NOTE | 2017-05-15 15:40 | PN ---
DATE OF SERVICE: 05/09/17 SUBJECTIVE: The patient is complaining of bilateral hip pain. Demerol is helping lower back pain. Up and about with the help. Family is strictly wanting her to go to the intermediate. REVIEW OF SYSTEMS: CONSTITUTIONAL: No fever, no chills. HEENT: Normal. ENDOCRINE: No weight gain, no weight loss. CVS: No angina symptoms. No CHF symptoms. No palpitations. No atypical chest pain for CAD. No shortness of breath. No PND, no orthopnea. RESPIRATORY: Cough, no hemoptysis. GI: No nausea, no vomiting. No abdominal pain. : No hematuria. No polyuria. MUSCULOSKELETAL: No joint swelling. PSYCHIATRIC: Not anxious. No depression. No suicidal thoughts. No homicidal thoughts. SKIN: Intact. No rash. PHYSICAL EXAMINATION: V/S: Blood pressure 131/71, respiratory rate 13, heart rate 62, temperature 97.8 with saturation 97. HEENT: Normocephalic, atraumatic. Mucosa dry. NECK: Supple. No JVD, no carotid bruit. No lymphadenopathy. LUNGS: Decreased and clear to auscultation. No rales or rhonchi. HEART: S1, S2 normal. No S3. No murmur, gallop or regurgitation. ABDOMEN: Soft, nontender. Bowel sounds active. No rigidity. No rebound or guarding. No CVA tenderness. EXTREMITIES: No pedal edema. No clubbing or cyanosis. MUSCULOSKELETAL: No joint swelling. NEUROLOGIC: Awake, alert, oriented times three. No focal deficit. LYMPHATIC: No lymph nodes palpable. SKIN: Intact. LABS: WBC 10.88, hgb 11.3, hct 35.1, plt count 240, sodium 138, potassium 4.5, chloride 105, bicarb 24, BUN 29, creatinine 1.30, glucose 92. ASSESSMENT: 1. Failure to thrive status post fall with T11 fracture 2. Hypertension 3. Diabetes 4. Dyslipidemia 5. Osteoarthritis 6. DJD spine 7. Parkinson's disease PLAN: 1. IV fluids 2. Demerol PRN 3. Out of bed to chair activity as tolerated with the help only as the patient is very high risk for the falls TIME SPENT: More than 35 minutes MTDD
[2017-05-16] MEDS: PRILOSEC PO SCH (05:59)
[2017-05-16] MEDS: SYMBICORT 160-4.5 MCG INHALER IH SCH (08:59)
[2017-05-16] MEDS: NORCO 5-325 PO SCH (09:00)
[2017-05-16] MEDS: DICLOFENAC SODIUM PO PRN (09:00)
[2017-05-16] MEDS: ZOCOR PO SCH (09:00)
[2017-05-16] MEDS: SYMMETREL PO SCH (09:00)
[2017-05-16] MEDS: VALIUM PO SCH (09:00)
[2017-05-16] MEDS: NYSTOP POWDER TP SCH (09:00)
[2017-05-16] MEDS: PROZAC PO SCH (09:01)
[2017-05-16] MEDS: JANUVIA PO SCH (09:01)
[2017-05-16] MEDS: INDERAL PO SCH (09:01)
[2017-05-16] MEDS: MICRO-K CAP PO SCH (09:02)
[2017-05-16] MEDS: NAMENDA PO SCH (09:02)
[2017-05-16] MEDS: HYDROCHLOROTHIAZIDE PO SCH ×2 (09:02→09:05)
[2017-05-16] MEDS: MIRALAX PO SCH (09:02)
[2017-05-16 10:42] VITALS: BP 101/52; TEMP 98.1
--- NOTE | 2017-05-16 16:24 | RS.OTQKDC ---
OT Discharge Date of Discharge: 05/15/17 Reason for Discharge: Pt discharged to home with home health.
--- NOTE | 2017-06-07 15:21 | PN ---
DATE OF SERVICE: 05/15/17 SUBJECTIVE: The patient is up and about walking doing the physical therapy good. They are going to be discharge the patient. The patient's family and the patient are having problems with agreement about where to discharge the patient. The patient is up and about but still has some trouble taking her own pills as she does not have any help at home at this time. We are trying to get the Home Health Care. The patient is walking with the walker with the help. Otherwise no falls ever since she is here. REVIEW OF SYSTEMS: CONSTITUTIONAL: No fever, no chills. HEENT: Normal. ENDOCRINE: No weight gain, no weight loss. CVS: No angina symptoms. No CHF symptoms. No palpitations. No atypical chest pain for CAD. No shortness of breath. No PND, no orthopnea. RESPIRATORY: No cough, no hemoptysis. GI: No nausea, no vomiting. No abdominal pain. : No hematuria. No polyuria. MUSCULOSKELETAL: No joint swelling. PSYCHIATRIC: Not anxious. No depression. No suicidal thoughts. No homicidal thoughts. SKIN: Intact. No rash. PHYSICAL EXAMINATION: GENERAL: The patient is awake, alert and oriented at this time. V/S: blood pressure 112/7, respiratory rate 18, heart rate 58, temperature 97.8 and saturation 95%. HEENT: Normocephalic, atraumatic. Mucosa dry. Pallor positive. No icterus. NECK: Supple. No JVD, no carotid bruit. No lymphadenopathy. LUNGS: Decreased and clear to auscultation. No rales or rhonchi. HEART: S1, S2 normal. No S3. No murmur, gallop or regurgitation. ABDOMEN: Soft, nontender. Bowel sounds active. No rigidity. No rebound or guarding. No CVA tenderness. EXTREMITIES: No pedal edema. No clubbing or cyanosis MUSCULOSKELETAL: No joint swelling. Paraspinal tenderness is present. NEUROLOGIC: Awake, alert, oriented times three. No focal deficit. LYMPHATIC: No lymph nodes palpable. SKIN: Intact. Dry. LABS: WBC 7.96, hgb 10.2, hct 31.5, plt count 222, sodium 139, potassium 3.7, chloride 103, bicarb 30, BUN 23, creatinine 1.05 ASSESSMENT: 1. Status post fall with T11 compression deformity 2. Alzheimer's Dementia 3. Bipolar disorder 4. Depression 5. Hypertension 6. Diabetes 7. Osteoarthritis 8. DJD spine 9. Recurrent falls PLAN: 1. Continue current care of medication 2. Accu-checks with coverage 3. Home Health Care 4. [place] for the pain which is twice a day, [place] is helping her with the pain. Not been constipated 5. Hypoglycemia been discussed 6. The patient is insisting on going home, Aware that she is very high risk for the falls but thinks that she can take care of herself at home by herself without any help. Which she is really did prove by doing a good physical therapy and they di sign her off so hopefully she will do good but still she is at very high risk for the falls which was discussed with the patient and she verbalized understanding and family also. They also know the outcome. TIME SPENT: More than 35 minutes LETICIA
--- NOTE | 2017-06-14 14:35 | DS ---
DATE OF SERVICE: 05/16/17 FINAL DIAGNOSIS: 1. STATUS POST FALL WITH T11 FRACTURE. SEEN BY DR. GILLESPIE AT [facility], [place]. 2. FAILURE TO THRIVE AT HOME 3. ANEMIA 4. DIABETES 5. HYPERTENSION 6. HISTORY OF CONGESTIVE HEART FAILURE 7. TIA 8. PARKINSON'S DISEASE 9. CHRONIC OBSTRUCTIVE PULMONARY DISEASE 10. GERD 11. HISTORY OF HEPATITIS B, IN REMISSION 12. RECURRENT URINARY TRACT INFECTIONS 13. OSTEOARTHRITIS 14. HISTORY OF RIGHT HIP REPLACEMENT 15. BIPOLAR 16. DEPRESSION 17. ANXIETY 18. ALZHEIMER'S DEMENTIA WITH CHANGE IN MENTAL STATUS WAS . STARTED ON THE NAMENDA HERE. 19. APPENDECTOMY 20. CHOLECYSTECTOMY 21. TWO BACK SURGERIES 22. HYSTERECTOMY 23. COLON RESECTION PLAN: 1. Discharge the patient to the home. 2. New prescriptions: [place] 5/325 mg one tablet twice a day 3. Continue wearing the back brace. 4. High risk for falls has been discussed on multiple occasions. 5. Continue ProAir, Amantadine, Symbicort, Valium 10 mg twice a day, Diclofenac , Nexium, Fluoxetine, Neurontin, Hydrochlorothiazide, Hydrocodone, Nitroglycerine, Potassium, Propranolol, Simvastatin, Januvia. 6. Diet: 2000 ADA diet. 7. Activity: As much as tolerated, but the patient has a very much fall risk with a history of recurrent falls and multiple medications. The patient is aware of this risk and the risk of fractured bones. The patient has already refused to go to the [facility] on multiple occasions. Even the family was requesting her to go to the [facility], but the patient refused to go there. We are sending to the independent house in the [facility] in [place], where her youngest daughter will be overseeing the patient. We will be providing the home health care for help with the medications. DISEASE SPECIFIC EDUCATION: Falls, fractures of the bones was discussed. The patient did have a T11 fracture and was seen at [facility] by Dr. Gillespie a spine surgeon because of the patient's complexity of medical problems, he did not want to do any surgery. The patient is wearing the back brace. HOSPITAL COURSE: Rubi Palmer, who is a 71 year old female, came to the office after a fall sustaining a fall in [place] and was admitted to [facility] with T11 fracture and seen by Dr. Gillespie. The patient was discharged to home and has not been doing good. She was using the wheelchair. The daughters are having trouble taking care of the patient. She did have falls for which the patient was not evaluated and does not complain of any pain. At that time, the patient was directly admitted to the [facility] for physical therapy and for failure to thrive at home. The patient had a thoracic spine x-ray which did show again the T11 vertebra fracture, which is stable. The patient was given IV fluids. Her white count was 13,000, BUN 33, creatinine 1.27. With the given IV fluids the BUN became normal. White count became normal. Chest x-ray did not show any infiltrates. Physical Therapy was called and for the physical therapy and she did do the physical therapy fine. The patient's family is very caring and because of the patient's needs and the patient's tremors in the hands from the Parkinson's Disease it will be difficult for her to take the pain medication for which reason they advised fci placement , but the patient insisted on going home and being taken care of herself. The patient did have a history of failure to thrive at home when she was living in [place] last year where the home was all filthy and most of the medications were seen on the floor when the EMT went to pickle solution maker the patient. The patient again insisted on going back her independent house and living by herself and all she wanted us to provide was home health care. At this time the patient is awake, alert and oriented and had multiple meetings with the family and the patient. All three daughters were there and after many discussions came to the conclusion that she will be going back to the independent house as the patient is awake, alert and resisting to going to the fci at this time. High risk for the falls and bone fractures were discussed. She verbalized understanding. TIME SPENT: MORE THAN 65 MINUTES LETICIA
== END 2017-05-16 14:15 | disposition home or self-care (01) | DRG 552 ==
LOC: MEDSURG A 16:37
PROVIDERS: ADMIT Emergency Medicine; ATTEND Emergency Medicine
DX: S22.089A Unspecified fracture of T11-T12 vertebra, initial encounter for closed fracture (principal); R62.7 Adult failure to thrive; R29.6 Repeated falls; G30.9 Alzheimer's disease, unspecified; F02.80 Dementia in other diseases classified elsewhere, unspecified severity, without behavioral disturbance, psychotic disturbance, mood disturbance, and anxiety; E11.9 Type 2 diabetes mellitus without complications; I10 Essential (primary) hypertension; I50.9 Heart failure, unspecified; G20 Parkinson's disease; J44.9 Chronic obstructive pulmonary disease, unspecified; K21.9 Gastro-esophageal reflux disease without esophagitis; M19.90 Unspecified osteoarthritis, unspecified site; F31.9 Bipolar disorder, unspecified; F41.8 Other specified anxiety disorders; E86.0 Dehydration; I25.10 Atherosclerotic heart disease of native coronary artery without angina pectoris; M25.552 Pain in left hip; M25.551 Pain in right hip; D64.9 Anemia, unspecified; E78.5 Hyperlipidemia, unspecified; G89.4 Chronic pain syndrome; W19.XXXA Unspecified fall, initial encounter; Z79.84 Long term (current) use of oral hypoglycemic drugs; Z79.899 Other long term (current) drug therapy; Z91.81 History of falling; Z86.73 Personal history of transient ischemic attack (TIA), and cerebral infarction without residual deficits; Z86.19 Personal history of other infectious and parasitic diseases; Z87.440 Personal history of urinary (tract) infections; Z96.641 Presence of right artificial hip joint
CPT/HCPCS: 36415; 80053; 81001; 82962; 85025; 87081; 97802